=== PATIENT | male | born 1945 | race Caucasian/White ===

== ENCOUNTER 2017-12-31 09:08 | Day surgery (SDC) | payer OTHER, BC ==
[2017-12-25 09:29] VITALS: BMI 25.7
[2017-12-31] MEDS ORDERED: PROPOFOL 20 ML ONE ×2 (09:25)
[2017-12-31] MEDS ORDERED: LIDOCAINE HCL/PF 2% SDV 5ML VIAL ONE (09:25)
[2017-12-31 16:29] VITALS: TEMP 97.6
[2017-12-31 16:31] VITALS: BP 106/56; PULSE 91
--- NOTE | 2018-01-02 17:39 | PATH ---
Surgical Pathology Report Patient Name: JAY JAY MODI [facility]. Rec. #: [id number] /Age/Gender: 1945 (Age: 72) / M Account: [id number] Location: [facility] Taken: 12/31/2017 Received: 12/31/2017 Reported: 01/02/2018 Physicians: Paula Lowery M.D. Specimen(s) Received A: ASCENDING COLON B: TRANSVERSE THICKENED FOLD C: 15 CM D: RECTUM Clinical History Polyp, rectal mass Final Diagnosis A. ASCENDING, BIOPSY: COLONIC MUCOSA SHOWING MILD SURFACE HYPERPLASTIC CHANGE. B. TRANSVERSE THICKENED FOLD, BIOPSY: HYPERPLASTIC POLYP. C. 15 CM, BIOPSY: SESSILE SERRATED POLYP. D. RECTUM, BIOPSY: ADENOCARCINOMA, WELL DIFFERENTIATED. Comment: Microsatellite instability (MSI) studies are being performed on specimen D; the results will be reported separately in an addendum. Electronically Signed Ingris Del Castillo M.D. Gross Description A. received in formalin, labeled "ascending" is one piece of gregorio tissue measuring 0.3 cm in greatest dimension. Entirely submitted one cassette. B. received in formalin, labeled "transverse, thickened fold" is one piece of gregorio tissue measuring 0.3 cm in greatest dimension. Entirely submitted one cassette. C. received in formalin, labeled "15 cm" are two pieces of gregorio tissue measuring 0.1 cm and 0.2 cm in greatest dimension. Entirely submitted one cassette. D. received in formalin, labeled "rectum" and six pieces of gregorio tissue ranging from 0.1-0.4 cm in greatest dimension with an aggregate are 0.7 x 0.4 x 0.2 cm. Entirely submitted one cassette. ebram/12/31/2017
== END 2017-12-31 11:20 | disposition home or self-care (01) ==
LOC: FASU-ENDO 09:08
PROVIDERS: ATTEND Internal Medicine Gastroenterology
PROC: 0DBP8ZX Excision of Rectum, Via Natural or Artificial Opening Endoscopic, Diagnostic (ICD-10-PCS; principal; 2017-12-31 10:14)
PROC: 0DBN8ZX Excision of Sigmoid Colon, Via Natural or Artificial Opening Endoscopic, Diagnostic (ICD-10-PCS; 2017-12-31 10:14)
PROC: 3E0H8GC Introduction of Other Therapeutic Substance into Lower GI, Via Natural or Artificial Opening Endoscopic (ICD-10-PCS; 2017-12-31 10:14)
DX: C20 Malignant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 (principal); D12.5 Benign neoplasm of sigmoid colon; K63.5 Polyp of colon; K57.30 Diverticulosis of large intestine without perforation or abscess without bleeding; K63.89 Other specified diseases of intestine; K92.1 Melena
CPT/HCPCS: 88305-TC

== ENCOUNTER 2018-06-25 10:31 | Observation (INO) | payer OTHER, BC ==
--- NOTE | 2018-06-25 10:39 | PDOC ---
History of Present Illness - General Chief Complaint: Respiratory Stated Complaint: DIFFICULTY BREATHING Time Seen by Provider: 06/25/18 10:35 History Source: Patient Exam Limitations: No Limitations - History of Present Illness Initial Comments: 06/25/18 10:36 72y M hx of Myasthenia Gravis (stable), Asthma, colon ca (on chemo, last time approx 1 month ago), presents with 1 day of sob. Patient states he was in his usual state of health yesterday during the day, in the middle of the night, he felt out of breath. he endorses minimal non productive cough. Pt endorses a substernal chest tightness but denies any chest pain. Pt has been sob since so came for evaluation. Took his albuterol and prednisone without significant improvement no associated fever/chills, sore throat, chest pain, rashes, leg pain or swelling, hemoptysis. His MG has been stable recently as is his asthma. No changes to his meds (on 10m Prednisone for MG) no recent travel or sick contacts Past History - Past Medical History Allergies/Adverse Reactions: Allergies Allergy/AdvReac Type Severity Reaction Status Date / Time Penicillins Allergy Rash Verified 06/25/18 10:33 venom-honey bee Allergy Verified 06/25/18 10:33 [bee venom (honey bee)] Home Medications: Ambulatory Orders Quinapril HCl 20 mg PO BID 08/28/11 Atorvastatin Ca [Lipitor -] 40 mg PO DAILY 06/19/14 Pregabalin [Lyrica -] 150 mg PO BID 06/19/14 Prednisone 10 mg PO Q48H 12/25/17 Anemia: No Asthma: Yes (no meds x1 yr) Cancer: No Cardiac Disorders: No CVA: No COPD: No CHF: No Dementia: No Diabetes: No GI Disorders: No Disorders: No HTN: Yes Hypercholesterolemia: Yes Liver Disease: No Seizures: Yes (Alcohol related seizures ) Thyroid Disease: No - Surgical History Abdominal Surgery: No Appendectomy: No Cardiac Surgery: No Cholecystectomy: No Lung Surgery: No Neurologic Surgery: No Orthopedic Surgery: No - Suicide/Smoking/Psychosocial Hx Smoking Status: No Smoking History: Former smoker Have you smoked in the past 12 months: No Number of Cigarettes Smoked Daily: 0 If you are a former smoker, when did you quit?: 1980 Hx Alcohol Use: No (stopped 1980) Drug/Substance Use Hx: No Substance Use Type: Alcohol Hx Substance Use Treatment: No Review of Systems - Review of Systems Able to Perform ROS?: Yes Comments:: 06/25/18 11:02 Constitutional - no reported Fever, Chills, HEENT: no reported vision changes, sore throat Respiratory: +cough, sob, no reported hemoptysis Cardiac: +chest tightness no reported chest pain, palpitations, light headedness , leg swelling Abd/GI: no reported abd pain, nausea, vomiting, blood per rectum, melena, diarrhea : no reported dysuria, frequency, discharge Musculskelatal - no reported back pain, joint swelling skin - no reported bruising, erythema, rash neurological: no reported headache, numbness, focal weakness, tingling, ataxia, hematologic: no reported easy bruising, easy bleeding *Physical Exam - Physical Exam Comments: 06/25/18 11:03 GENERAL: The patient is awake, alert, and fully oriented, HEAD: Normocephalic, atraumatic. EYES: extraocular movements intact, sclera anicteric, conjunctiva clear. ENT: Normal voice, Moist mucous membranes. NECK: Normal range of motion, supple LUNGS: scatterd wheezing, tachypneic HEART: tachcyardic, normal S1 and S2 without murmur, rub or gallop. ABDOMEN: Soft, nontender, normoactive bowel sounds. No guarding, no rebound. . No CVA tenderness EXTREMITIES: Normal range of motion, trace edema. no calf tenderness NEUROLOGICAL: No facial assymetry, Normal speech, PSYCH: Normal mood, normal affect. SKIN: Warm, Dry, normal turgor, Heart Score/ECG Review - ECG Impressions Comment:: 06/25/18 11:03 Twelve-lead EKG was performed and reviewed by me. There is normal sinus rhythm with a rate of 124 The axis is normal. The intervals are normal. There is normal R wave progression There are no ST or T wave abnormalities. Impression: sinus tachycardia ED Treatment Course - LABORATORY CBC & Chemistry Diagram: 06/25/18 11:10 06/25/18 11:10 Medical Decision Making - Medical Decision Making 06/25/18 11:04 ddx - pna, pe, asthma, acs will ck labs pt placed on cardiac moonitor cxr to r/o acute pulm disease will send trop/bnp will give neg will reassess 06/25/18 11:54 labs cxr reviewed no acute pulm disease on cxr [facility] 06/25/18 12:44 cta negative for pe will admit for further management 06/25/18 14:18 possible COPD will give solumdrol case dw dr. bonilla, agree with keeping put for further management will admit to hosptialist service 06/25/18 15:01 pt again complaining of sob breath sounds tight and scattered wheez will alexei giron rneb, and mag *DC/Admit/Observation/Transfer Diagnosis at time of Disposition: Shortness of breath, Thrombocytopathia - Discharge Dispostion Condition at time of disposition: Stable Decision to Admit order: Yes - Referrals - Patient Instructions - Post Discharge Activity
[2018-06-25] MEDS ORDERED: ALBUTEROL SO4 2.5/IPRATROPIUM 0.5 INH SOL 3 ML VIAL.NEB. NEB ONE ×4 (10:44→15:03)
[2018-06-25 10:47] VITALS: BMI 26.4
[2018-06-25 11:25] LABS: MCH 37.8 pg (25.7-33.7); MCHC 33.3 g/dl (32.0-35.9); MEAN CELL VOLUME 113.5 fl (80-96); RBC 3.43 M/mm3 (4.00-5.60); RDW 20.7 % (11.9-15.9); WHITE BLOOD COUNT 6.1 K/mm3 (4.0-10.8)
[2018-06-25 11:33] LABS: ALBUMIN 3.5 g/dl (3.4-5.0); ALK PHOS 177 U/L (45-117); ANION GAP 6 MMOL/L (8-16); BILIRUBIN,TOTAL 1.7 mg/dl (0.2-1); BLOOD UREA NITROGEN 11 mg/dl (7-18); CALCIUM 8.5 mg/dl (8.5-10); CHLORIDE 109 mmol/L (98-107); CO2 21 mmol/L (21-32); CREATININE 0.6 mg/dl (0.55-1.3); GLUCOSE,RANDOM 147 mg/dl (74-106); POTASSIUM 3.8 mmol/L (3.5-5.1); SGOT/AST 41 U/L (15-37); SGPT/ALT 29 U/L (13-61); SODIUM 136 mmol/L (136-145); TOT PROT 6.3 g/dl (6.4-8.2)
[2018-06-25 11:34] LABS: INR 1.24 (0.82-1.09); PROTHROMBIN TIME (PATIENT) 13.8 SEC (10.2-13.0)
[2018-06-25 12:09] LABS: PLATELET COUNT 33 K/MM3 (134-434)
[2018-06-25 12:11] LABS: ANISOCYTOSIS SLIGHT
[2018-06-25 12:12] LABS: PLATELET ESTIMATE DECREASED
[2018-06-25] MEDS ORDERED: SODIUM CHLORIDE 500 ML IV STA ×2 (13:21→16:30)
[2018-06-25] MEDS ORDERED: methylPREDNISolone NA SUCC 125 MG/2 ML VIAL IVPUSH ONE (14:18)
[2018-06-25] MEDS ORDERED: methylPREDNISolone NA SUCC 125 MG/2 ML VIAL ONE (14:22)
[2018-06-25] MEDS ORDERED: MAGNESIUM SULF 50% (8.12 MEQ/2 ML-1 GM VIAL) IVPB ONE (15:01)
[2018-06-25] MEDS ORDERED: MAGNESIUM 1GM/D5W - 2 GM/200 ML IVPB IVPB ONE (15:04)
--- NOTE | 2018-06-25 16:08 | HP ---
CHIEF COMPLAINT: Shortness of breath PCP: Yannick Velásquez-->Aric Velez-->Emiliano; none at present Oncologist: Dr. Arauz, [place] [phone] Radiation Oncologist: Dr. Colindres HISTORY OF PRESENT ILLNESS: 72 year-old male with a PMH significant for HTN, HLD, asthma, myasthenia gravis , and rectal adenocarcinoma last cycle chemo x 4 weeks ago and about to start radiation. Patient presented to the ED today complaining of shortness of breath. Patient has a history of asthma but has been off theophylline for years , occasionally uses albuterol rescue inhaler. He also has a history of seasonal allergies. Yesterday patient was outside for most of the day and the pollen was very heavy. He went to bed and around midnight awoke feeling short of breath. He used his albuterol inhaler. Woke up again about an hour later SOB, again used inhaler. This morning patient had a sore throat and clear nasal discharge. He went to the pharmacy to get some OTC remedies and the pharmacist suggested he go to ED because he was visibly short of breath. He has a cough productive of light yellow sputum. Denies chest pain, chest tightness, decreased exercise tolerance, lower extremity edema. He denies fever, sweats, chills. Denies nausea , vomiting, diarrhea. Denies abdominal pain. 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[employer], leather worker (occupational exposures) Allergies Penicillins Allergy (Verified 06/25/18 10:33) Rash venom-honey bee [bee venom (honey bee)] Allergy (Verified 06/25/18 10:33) HOME MEDICATIONS: Home Medications Medication Instructions Recorded Quinapril HCl 20 mg PO BID 08/28/11 Atorvastatin Ca [Lipitor -] 40 mg PO DAILY 06/19/14 Pregabalin [Lyrica -] 150 mg PO BID 06/19/14 Prednisone 10 mg PO Q48H 10/25/18 REVIEW OF SYSTEMS CONSTITUTIONAL: Absent: fever, chills, diaphoresis, generalized weakness, malaise, loss of appetite, weight change HEENT: Absent: rhinorrhea, nasal congestion, throat pain, throat swelling, difficulty swallowing, mouth swelling, ear pain, eye pain, visual changes CARDIOVASCULAR: Absent: chest pain, syncope, palpitations, irregular heart rate, lightheadedness , peripheral edema RESPIRATORY: +shortness of breath, wheezing, sore throat, clear nasal discharge, cough productive light yellow sputum Absent: dyspnea with exertion, orthopnea, stridor, hemoptysis GASTROINTESTINAL: Absent: abdominal pain, abdominal distension, nausea, vomiting, diarrhea, constipation, melena, hematochezia GENITOURINARY: Absent: dysuria, frequency, urgency, hesitancy, hematuria, flank pain, genital pain MUSCULOSKELETAL: Absent: myalgia, arthralgia, joint swelling, back pain, neck pain SKIN: Absent: rash, itching, pallor HEMATOLOGIC/IMMUNOLOGIC: Absent: easy bleeding, easy bruising, lymphadenopathy, frequent infections ENDOCRINE: Absent: unexplained weight gain, unexplained weight loss, heat intolerance, cold intolerance NEUROLOGIC: Absent: headache, focal weakness or paresthesias, dizziness, unsteady gait, seizure, mental status changes, bladder or bowel incontinence PSYCHIATRIC: Absent: anxiety, depression, suicidal or homicidal ideation, hallucinations. PHYSICAL EXAMINATION Vital Signs - 24 hr 06/25/18 06/25/18 06/25/18 10:33 11:11 12:06 Temperature 99.1 F Pulse Rate 132 H Pulse Rate [ 132 H 110 H Apical] Respiratory 20 22 H 20 Rate Blood Pressure 182/92 H Blood Pressure 128/71 117/69 [Right Arm] O2 Sat by Pulse 93 L 96 96 Oximetry (%) 06/25/18 15:13 Temperature Pulse Rate Pulse Rate [ 112 H Apical] Respiratory 20 Rate Blood Pressure Blood Pressure 130/73 [Right Arm] O2 Sat by Pulse 98 Oximetry (%) GENERAL: Awake, alert, and fully oriented, in no acute distress. HEAD: Normal with no signs of trauma. EYES: Pupils equal, round and reactive to light, extraocular movements intact, sclera anicteric, conjunctiva clear. No lid lag. EARS, NOSE, THROAT: Ears normal, nares patent, pharynx red, injected appearance , no exudates; dry mucous membranes LUNGS: Breath sounds CTA, no wheezing appreciated HEART: Regular rate and rhythm, normal S1 and S2 ABDOMEN: Soft, nontender, not distended UPPER EXTREMITIES: 2+ pulses, warm, well-perfused. No cyanosis. No clubbing. No peripheral edema. LOWER EXTREMITIES: 2+ pulses, warm, well-perfused. No calf tenderness. No peripheral edema. NEUROLOGICAL: Cranial nerves II-XII intact. Normal speech. Steady gait Laboratory Results - last 24 hr 06/25/18 06/25/18 06/25/18 11:10 11:10 11:10 WBC 6.1 RBC 3.43 L Hgb 13.0 Hct 39.0 D MCV 113.5 H D MCH 37.8 H D MCHC 33.3 RDW 20.7 H D Plt Count 33 L* D MPV 8.0 Absolute Neuts (auto) 4.5 Neutrophils % No Result Required. Neutrophils % (Manual) 81.0 Lymphocytes % No Result Required. Lymphocytes % (Manual) 10.0 Monocytes % (Manual) 5 Eosinophils % (Manual) 4.0 Platelet Estimate Decreased Polychromasia 1+ Poikilocytosis Slight Anisocytosis Slight PT with INR INR Sodium 136 Potassium 3.8 Chloride 109 H Carbon Dioxide 21 Anion Gap 6 L BUN 11 Creatinine 0.6 Creat Clearance w eGFR 133.20 Random Glucose 147 H Calcium 8.5 Total Bilirubin 1.7 H AST 41 H ALT 29 Alkaline Phosphatase 177 H Creatine Kinase 52 Troponin I < 0.03 B-Natriuretic Peptide Total Protein 6.3 L Albumin 3.5 06/25/18 06/25/18 11:10 11:10 WBC RBC Hgb Hct MCV MCH MCHC RDW Plt Count MPV Absolute Neuts (auto) Neutrophils % Neutrophils % (Manual) Lymphocytes % Lymphocytes % (Manual) Monocytes % (Manual) Eosinophils % (Manual) Platelet Estimate Polychromasia Poikilocytosis Anisocytosis PT with INR 13.8 H INR 1.24 H Sodium Potassium Chloride Carbon Dioxide Anion Gap BUN Creatinine Creat Clearance w eGFR Random Glucose Calcium Total Bilirubin AST ALT Alkaline Phosphatase Creatine Kinase Troponin I B-Natriuretic Peptide 33.0 Total Protein Albumin ASSESSMENT/PLAN 72 year-old male with a PMH significant for HTN, HLD, asthma, myasthenia gravis , and rectal adenocarcinoma last cycle chemo x 4 weeks ago and about to start radiation. Placed on observation for asthma exacerbation and tachycardia. Asthma exacerbation Chronic lung disease --CTA negative for PE --saw Dr. Mehta December 2017 for PFT testing; uses albuterol inhaler rarely; on no regular medication/inhalers --satting 96% on room air at rest, 93% on room air with flat surface ambulation (testing done by me) --solumedrol 125mg x 1 in ED, short course steroids --duonebs q6h scheduled --afebrile, no leukocytosis, no abx for now --pulmonary consult pending Elevated bilirubin Mild transaminitis --repeated LFTs with increased bili 1.7-->2.0 --US abdomen ordered --trend values Rectal cancer Thrombocytopenia --last chemo cycle finished 4 weeks ago; supposed to start radiation shortly --spoke to oncologist Dr. Arauz, platelets 33k is lower than expected but no intervention indicated at this point --monitor closely for s/s of bleeding Hypertensive urgency --BP 182/92 on admission, has stabilized --continue quinapril Tachycardia --no cardiac history --telemetry monitoring --orthostatics --IV fluids Hyperlipidemia --continue Lipitor Myasthenia Gravis --diagnosed 10 years ago, followed by Dr. Bell --stable, on no meds FEN Fluids: NS x 500cc bolus; then 75mL/hr Electrolytes: replete as indicated Nutrition: low sodium diet DVT prophylaxis: subq lovenox Dispo: continues to require observation. Full code. Visit type - Emergency Visit Emergency Visit: Yes Care time: The patient presented to the Emergency Department on the above date and was hospitalized for further evaluation of their emergent condition. - New Patient This patient is new to me today: Yes Date on this admission: 06/25/18 - Critical Care Critical Care patient: No
[2018-06-25] MEDS ORDERED: ATORVASTATIN CA 40 MG TABLET (FP) PO SCH (16:15)
[2018-06-25] MEDS ORDERED: SODIUM CHLORIDE 1,000 ML IV SCH (16:45)
[2018-06-25] MEDS ORDERED: levoFLOXacin 750 MG TABLET PO SCH (17:00)
[2018-06-25] MEDS: ALBUTEROL SO4 2.5/IPRATROPIUM 0.5 INH SOL 3 ML VIAL.NEB. NEB SCH ×2 (17:30→22:42)
[2018-06-25 17:50] LABS: ALBUMIN 3.5 g/dl (3.4-5.0); BILIRUBIN,DIRECT 0.5 mg/dL (0.0-0.2); TOT PROT 6.4 g/dl (6.4-8.2)
[2018-06-25] MEDS: PREGABALIN 50 MG CAPSULE PO SCH (21:36)
[2018-06-25] MEDS: QUINAPRIL HCL 20 MG TABLET (FP) PO SCH (21:36)
[2018-06-26 06:05] VITALS: BP 132/75; PULSE 88; TEMP 97.7
[2018-06-26 07:29] LABS: HEMATOCRIT 36.8 % (35.4-49); HEMOGLOBIN 12.5 GM/dl (11.7-16.9); LYMPH % 6.7 % (8-40); MCH 37.8 pg (25.7-33.7); MCHC 33.8 g/dl (32.0-35.9); MEAN CELL VOLUME 111.9 fl (80-96); MEAN PLT VOLUME 7.5 fl (7.5-11.1); MONO % 5.2 % (3.8-10.2); NEUT % 88.1 % (42.8-82.8); PLATELET COUNT 41 K/MM3 (134-434); RBC 3.29 M/mm3 (4.00-5.60); RDW 20.5 % (11.9-15.9)
[2018-06-26 07:43] LABS: ANION GAP 9 MMOL/L (8-16); BLOOD UREA NITROGEN 11 mg/dl (7-18); CALCIUM 8.5 mg/dl (8.5-10); CHLORIDE 107 mmol/L (98-107); CO2 20 mmol/L (21-32); CREATININE 0.5 mg/dl (0.55-1.3); GLUCOSE,RANDOM 167 mg/dl (74-106); MAGNESIUM 2.1 mg/dL (1.8-2.4); POTASSIUM 4.2 mmol/L (3.5-5.1); SODIUM 136 mmol/L (136-145)
[2018-06-26] MEDS: QUINAPRIL HCL 20 MG TABLET (FP) PO SCH (09:40)
[2018-06-26] MEDS: PREGABALIN 50 MG CAPSULE PO SCH (09:41)
[2018-06-26] MEDS: ALBUTEROL SO4 2.5/IPRATROPIUM 0.5 INH SOL 3 ML VIAL.NEB. NEB SCH (09:41)
--- NOTE | 2018-06-26 09:42 | PN ---
Progress Note (short form) - Note Progress Note: PULMONARY CONSULTATION DICTATED 06/26/18 IMP ASTHMA EXACERBATION URI MYASTHENIA GRAVIS COLON CA HTN THROMBOCYTOPENIA PLAN PREDNISONE SYMBICORT 160/4.5 2 INHALATIONS BID ' ALBUTEROL NEDS,INHALER ABX MONITOR PEAK FLOW ' DR CRAIG Problem List - Problems (1) Asthma attack Code(s): J45.901 - UNSPECIFIED ASTHMA WITH (ACUTE) EXACERBATION (2) Shortness of breath Code(s): R06.02 - SHORTNESS OF BREATH (3) Thrombocytopathia Code(s): D69.1 - QUALITATIVE PLATELET DEFECTS (4) Myasthenia Code(s): G70.00 - MYASTHENIA GRAVIS WITHOUT (ACUTE) EXACERBATION (5) Colon cancer Code(s): C18.9 - MALIGNANT NEOPLASM OF COLON, UNSPECIFIED
[2018-06-26] MEDS ORDERED: BUDESONIDE/FORMETEROL FUMARATE 160/4.5 mcg INHALER IH SCH (10:00)
[2018-06-26] MEDS ORDERED: AZITHROMYCIN 250 MG TABLET PO SCH (10:00)
[2018-06-26] MEDS ORDERED: predniSONE 20 MG TABLET (UD) PO SCH (10:00)
[2018-06-26] MEDS ORDERED: ENOXAPARIN NA (PORCINE) 40 MG/0.4 ML DISP.SYRIN SQ SCH (10:00)
--- NOTE | 2018-06-26 10:17 | CONS ---
DATE OF CONSULTATION: 06/26/2018 REFERRING PHYSICIAN: HUMBLE Cobian HISTORY: The patient is a 72-year-old white male known to me from previous office visit, with past medical history of asthma, maintained on Albuterol inhaler; myasthenia gravis, maintained on prednisone; colon cancer currently on chemo as well as RT, last chemo approximately 1 month ago; remote history of smoking, admitted to [facility] on June 25 with complaint of 1-day history of increasing shortness of breath, cough productive of clear, occasionally yellow sputum. Patient denied any complaints of chest pain, nausea, vomiting, or diaphoresis. He states he was doing well till the day of admission, until the middle of the night when he started feeling short of breath. He denies any fevers, chills, nausea, hemoptysis. He also has complaints of chest tightness but no chest pain. In the emergency room he was noted to have bronchospasm and moderately dyspneic. He was given some IV Medrol, inhaled bronchodilators with good clinical response and transferred up to medical floor for further management. He denies any recent travel. There is no history of DVT or PE in the past. use of an albuterol inhaler which he used on an infrequent basis. Denies any history of occupational exposure to chemicals or fumes. PAST MEDICAL HISTORY: Again includes myasthenia gravis, colon cancer, asthma, hypertension, and anemia SOCIAL HISTORY: History of smoking, quit in 1980. No occupational exposures. No EtOH. REVIEW OF SYSTEMS: Positive mild dyspnea, positive mild cough. No chest pain, no palpitation, no fever, no weight loss, no night sweats, no hemoptysis. CURRENT MEDICATIONS: Include prednisone 60 mg daily, Accupril 20 mg b.i.d., Lovenox, Lyrica, DuoNeb, normal saline, and Lipitor. PHYSICAL EXAMINATION: General: The patient is a well-developed, well-nourished male, awake, alert, in no acute distress. Vital Signs: He is afebrile. Blood pressure 132/75. Respiratory rate is 18. O2 saturation is 95% on room air. HEENT: Exam is normocephalic, atraumatic. Neck: Supple. Heart: Regular, S1, S2. Chest: Few rhonchi on the left. Abdomen: Soft. Bowel sounds are positive. Extremities: No cyanosis or edema. LABORATORY: WBC 6.0, hemoglobin 12.5, hematocrit 36.8, with a platelet count of 41,000. INR is 1.24. BUN 11, creatinine 0.5. Chest CT: No infiltrates and no effusions. chronic lung disease. No change from previous exam from 2011. IMPRESSION: 1. Asthma exacerbation likely secondary to upper respiratory infection. clinically improving. 2. Myasthenia gravis. 3. History of colon cancer, currently on chemotherapy as well as radiation therapy. PLAN: Continue prednisone 60 mg with taper, Symbicort 160/4.5, 2 puffs b.i.d.; Albuterol inhaler 2 puffs q.4 to 6 hours p.r.n.; as well as Zithromax. Continue to monitor peak flow. JAY JAY CRAIG M.D. [id number]
[2018-06-26 10:46] LABS: ALBUMIN 3.2 g/dl (3.4-5.0); BILIRUBIN,DIRECT 0.3 mg/dL (0.0-0.2); BILIRUBIN,TOTAL 1.5 mg/dl (0.2-1); TOT PROT 5.8 g/dl (6.4-8.2)
--- NOTE | 2018-06-26 11:29 | DS ---
Physical Exam: SUBJECTIVE: Patient seen and examined OBJECTIVE: Vital Signs Period Temp Pulse Resp BP Sys/Ayon Pulse Ox Last 24 Hr 97.7 F-99.2 F 88-112 16-20 117-140/69-75 93-98 PHYSICAL EXAM GENERAL: The patient is awake, alert, and fully oriented, in no acute distress. HEAD: Normal with no signs of trauma. EYES: PERRL, extraocular movements intact, sclera anicteric, conjunctiva clear. ENT: Ears normal, nares patent, oropharynx clear without exudates, moist mucous membranes. NECK: Trachea midline, full range of motion, supple. LUNGS: Breath sounds equal, clear to auscultation bilaterally, no wheezes, no crackles, no accessory muscle use. HEART: Regular rate and rhythm, S1, S2 without murmur, rub or gallop. ABDOMEN: Soft, nontender, nondistended, normoactive bowel sounds, no guarding, no rebound, no hepatosplenomegaly, no masses. EXTREMITIES: 2+ pulses, warm, well-perfused, no edema. NEUROLOGICAL: Cranial nerves II through XII grossly intact. Normal speech, gait not observed. PSYCH: Normal mood, normal affect. SKIN: Warm, dry, normal turgor, no rashes or lesions noted. LABS Laboratory Results - last 24 hr 06/25/18 06/25/18 06/25/18 11:10 11:10 11:10 WBC 6.1 RBC 3.43 L Hgb 13.0 Hct 39.0 D MCV 113.5 H D MCH 37.8 H D MCHC 33.3 RDW 20.7 H D Plt Count 33 L* D MPV 8.0 Absolute Neuts (auto) 4.5 Neutrophils % No Result Required. Neutrophils % (Manual) 81.0 Lymphocytes % No Result Required. Lymphocytes % (Manual) 10.0 Monocytes % Monocytes % (Manual) 5 Eosinophils % Eosinophils % (Manual) 4.0 Basophils % Platelet Estimate Decreased Polychromasia 1+ Poikilocytosis Slight Anisocytosis Slight PT with INR INR Sodium 136 Potassium 3.8 Chloride 109 H Carbon Dioxide 21 Anion Gap 6 L BUN 11 Creatinine 0.6 Creat Clearance w eGFR 133.20 Random Glucose 147 H Calcium 8.5 Magnesium Total Bilirubin 1.7 H Direct Bilirubin AST 41 H ALT 29 Alkaline Phosphatase 177 H Creatine Kinase 52 Troponin I < 0.03 B-Natriuretic Peptide Total Protein 6.3 L Albumin 3.5 TSH 06/25/18 06/25/18 06/25/18 11:10 11:10 17:00 WBC RBC Hgb Hct MCV MCH MCHC RDW Plt Count MPV Absolute Neuts (auto) Neutrophils % Neutrophils % (Manual) Lymphocytes % Lymphocytes % (Manual) Monocytes % Monocytes % (Manual) Eosinophils % Eosinophils % (Manual) Basophils % Platelet Estimate Polychromasia Poikilocytosis Anisocytosis PT with INR 13.8 H INR 1.24 H Sodium Potassium Chloride Carbon Dioxide Anion Gap BUN Creatinine Creat Clearance w eGFR Random Glucose Calcium Magnesium Total Bilirubin 2.0 H Direct Bilirubin 0.5 H AST 46 H ALT 30 Alkaline Phosphatase 172 H Creatine Kinase Troponin I B-Natriuretic Peptide 33.0 Total Protein 6.4 Albumin 3.5 TSH 0.86 06/25/18 06/25/18 06/26/18 17:00 22:35 06:45 WBC 6.0 RBC 3.29 L Hgb 12.5 Hct 36.8 MCV 111.9 H MCH 37.8 H MCHC 33.8 RDW 20.5 H Plt Count 41 L D MPV 7.5 Absolute Neuts (auto) 5.3 Neutrophils % 88.1 H Neutrophils % (Manual) Lymphocytes % 6.7 L D Lymphocytes % (Manual) Monocytes % 5.2 Monocytes % (Manual) Eosinophils % 0.0 D Eosinophils % (Manual) Basophils % 0.0 Platelet Estimate Polychromasia Poikilocytosis Anisocytosis PT with INR INR Sodium Potassium Chloride Carbon Dioxide Anion Gap BUN Creatinine Creat Clearance w eGFR Random Glucose Calcium Magnesium Total Bilirubin Direct Bilirubin AST ALT Alkaline Phosphatase Creatine Kinase Troponin I < 0.03 < 0.03 B-Natriuretic Peptide Total Protein Albumin TSH 06/26/18 06/26/18 06:45 06:45 WBC RBC Hgb Hct MCV MCH MCHC RDW Plt Count MPV Absolute Neuts (auto) Neutrophils % Neutrophils % (Manual) Lymphocytes % Lymphocytes % (Manual) Monocytes % Monocytes % (Manual) Eosinophils % Eosinophils % (Manual) Basophils % Platelet Estimate Polychromasia Poikilocytosis Anisocytosis PT with INR INR Sodium 136 Potassium 4.2 Chloride 107 Carbon Dioxide 20 L Anion Gap 9 BUN 11 Creatinine 0.5 L Creat Clearance w eGFR 164.39 Random Glucose 167 H Calcium 8.5 Magnesium 2.1 Total Bilirubin 1.5 H Direct Bilirubin 0.3 H AST 35 ALT 26 Alkaline Phosphatase 146 H D Creatine Kinase Troponin I B-Natriuretic Peptide Total Protein 5.8 L Albumin 3.2 L TSH HOSPITAL COURSE: Date of Admission:06/25/18 Date of Discharge: 06/26/18 Minutes to complete discharge: 35 Discharge Summary Reason For Visit: SHORTNESS OF BREATH Current Active Problems Asthma attack (Acute) Colon cancer (Acute) Myasthenia (Acute) Shortness of breath (Acute) Thrombocytopathia (Acute) Condition: Improved - Instructions Diet, Activity, Other Instructions: Four prescriptions have been sent to your pharmacy: 1. Albuterol inhaler 2. Symbicort inhaler 3. Azithromycin (antibiotic) 4. Prednisone 60mg - take one tablet daily for three days; then resume your regular prednisone dosing every 48 hours It is recommended you follow up with Dr. Mehta. Dr. Arauz is aware of your hospital stay. He asks that you call his office to reschedule your missed appointment. Return to the emergency department for any new or worsening symptoms. Referrals: Wilfrid Mehta MD [Staff Physician] - Disposition: HOME - Home Medications Comprehensive Discharge Medication List: Ambulatory Orders Quinapril HCl 20 mg PO BID 08/28/11 Atorvastatin Ca [Lipitor] 40 mg PO DAILY 06/19/14 Pregabalin [Lyrica -] 150 mg PO BID 06/19/14 Prednisone 10 mg PO Q48H 12/25/17 Azelas/Fluticasone/Sod Chlorid [Ticalast Nasal Jenkins Kit] 2 spray NS BID Albuterol Sulfate [Proair Hfa] 8.5 gm IH PRN #1 hfa.aer.[id number] 06/26/18 Azithromycin [Zithromax 250mg Tablets -] 500 mg PO DAILY 5 Days #5 tablet Budesonide/Formeterol Fumarate [SYMBICORT 160/4.5mcg -] 2 puff IH BID #1 inhaler 06/26/18 Prednisone [Deltasone] 60 mg PO DAILY #9 tablet 06/26/18 This patient is new to me today: No Emergency Visit: Yes ED Registration Date: 06/25/18 Care time: The patient presented to the Emergency Department on the above date and was hospitalized for further evaluation of their emergent condition. Critical Care patient: No - Discharge Referral Referred to [facility] Med [facility] No
--- NOTE | 2018-06-26 11:30 | EKG ---
Test Reason : Blood Pressure : / mmHG Vent. Rate : 124 BPM Atrial Rate : 124 BPM P-R Int : 148 ms QRS Dur : 086 ms QT Int : 298 ms P-R-T Axes : 078 080 054 degrees QTc Int : 428 ms SINUS TACHYCARDIA WITH PREMATURE ATRIAL COMPLEXES NO PREVIOUS ECGS AVAILABLE Confirmed by YESSENIA OLGUIN MD ([id number]) on 06/26/2018 11:29:28 AM Referred By: LUCERO BOYD Confirmed By:YESSENIA OLGUIN MD
[2018-06-26] MEDS ORDERED: ATORVASTATIN CA 40 MG TABLET (FP) PO SCH (22:00)
--- NOTE | 2018-06-27 15:17 | EKG ---
Test Reason : Blood Pressure : / mmHG Vent. Rate : 091 BPM Atrial Rate : 091 BPM P-R Int : 170 ms QRS Dur : 090 ms QT Int : 384 ms P-R-T Axes : 047 035 033 degrees QTc Int : 472 ms NORMAL SINUS RHYTHM NORMAL ECG WHEN COMPARED WITH ECG OF 25-JUN-2018 10:56, PREMATURE ATRIAL COMPLEXES ARE NO LONGER PRESENT Confirmed by ROSARIO GR MD ([id number]) on 06/27/2018 3:17:29 PM Referred By: DR SMITH Confirmed By:ROSARIO GR MD
== END 2018-06-26 11:23 | disposition home or self-care (01) ==
LOC: FER 10:31 → UNDOADMOB 15:13 → INTOOBSV 15:13 → FM/S 15:13
PROVIDERS: ATTEND Nurse Practitioner Acute Care
PROC: 3E0333Z Introduction of Anti-inflammatory into Peripheral Vein, Percutaneous Approach (ICD-10-PCS; principal; 2018-06-25)
PROC: 3E0337Z Introduction of Electrolytic and Water Balance Substance into Peripheral Vein, Percutaneous Approach (ICD-10-PCS; 2018-06-25)
PROC: 3E033GC Introduction of Other Therapeutic Substance into Peripheral Vein, Percutaneous Approach (ICD-10-PCS; 2018-06-25)
PROC: 3E013GC Introduction of Other Therapeutic Substance into Subcutaneous Tissue, Percutaneous Approach (ICD-10-PCS; 2018-06-25)
PROC: 3E0F7GC Introduction of Other Therapeutic Substance into Respiratory Tract, Via Natural or Artificial Opening (ICD-10-PCS; 2018-06-25)
DX: J45.901 Unspecified asthma with (acute) exacerbation (principal); J06.9 Acute upper respiratory infection, unspecified; R06.02 Shortness of breath; D69.6 Thrombocytopenia, unspecified; C19 Malignant neoplasm of rectosigmoid junction; I16.0 Hypertensive urgency; R00.0 Tachycardia, unspecified; E78.5 Hyperlipidemia, unspecified; I10 Essential (primary) hypertension; E80.7 Disorder of bilirubin metabolism, unspecified; G70.00 Myasthenia gravis without (acute) exacerbation; Z87.891 Personal history of nicotine dependence; Z86.69 Personal history of other diseases of the nervous system and sense organs; Z92.21 Personal history of antineoplastic chemotherapy; Z88.0 Allergy status to penicillin; Z91.038 Other insect allergy status
CPT/HCPCS: 36415; 70360-TC-FY; 71045-TC-FY; 71275-TC; 80048; 80053; 80076; 82550; 83735; 83880; 84443; 84484; 85025; 85610; 93005; 94640; 96361; 96374; 96375; 99284-25; G0378; J7030

== ENCOUNTER 2018-10-14 12:49 | Day surgery (SDC) | payer OTHER, BC ==
[2018-10-09 12:20] VITALS: BMI 26.9
[2018-10-14] MEDS ORDERED: PROPOFOL 20 ML ONE ×2 (15:52)
[2018-10-14] MEDS ORDERED: LIDOCAINE HCL/PF 2% SDV 5ML VIAL ONE (15:52)
[2018-10-14 16:25] VITALS: TEMP 97.6
[2018-10-14 17:00] VITALS: BP 122/74; PULSE 72
--- NOTE | 2018-10-16 11:50 | PATH ---
Surgical Pathology Report Patient Name: JAY JAY MODI [facility]. Rec. #: [id number] /Age/Gender: 1945 (Age: 73) / M Account: [id number] Location: [facility] Taken: 10/14/2018 Received: 10/14/2018 Reported: 10/16/2018 Physicians: Paula Lowery M.D. Specimen(s) Received A: THICKENED FOLD JUNCTION CECUM AND ASCENDING COLON B: POLYP TRANSVERSE COLON C: RANDOM RECTUM TATOO SITE Clinical History History of rectal cancer Postoperative diagnosis: Polyp, thickened fold, diverticulosis Final Diagnosis A. THICKENED FOLD JUNCTION CECUM AND ASCENDING COLON, BIOPSY: HYPERPLASTIC POLYP. B. TRANSVERSE COLON POLYP, POLYPECTOMY: HYPERPLASTIC POLYP. C. RANDOM RECTUM TATTOO SITE, BIOPSY: BENIGN COLONIC MUCOSA WITH FOCAL SURFACE HYPERPLASTIC CHANGE. NEGATIVE FOR CARCINOMA. Electronically Signed Shawn Ríos M.D. Gross Description A. Received in formalin, labeled "biopsy thickened fold cecum/ascending colon" is a gregorio, irregular portion of soft tissue measuring 0.4 cm. in greatest dimension. The specimen is submitted in toto in one cassette. B. Received in formalin, labeled "biopsy polyp transverse colon" are 2 gregorio, irregular portions of soft tissue averaging 0.2 cm. in greatest dimension. The specimens are submitted in toto in one cassette. C. Received in formalin labeled "biopsy random rectum," is a 0.9 x 0.7 x 0.2 cm aggregate of gregorio soft tissue fragments. The formalin is filtered and the specimen is entirely submitted in one cassette. 10/15/2018 [facility]10/15/2018
== END 2018-10-14 17:18 | disposition home or self-care (01) ==
LOC: FASU-ENDO 12:49
PROVIDERS: ATTEND Internal Medicine Gastroenterology
PROC: 0DBL8ZX Excision of Transverse Colon, Via Natural or Artificial Opening Endoscopic, Diagnostic (ICD-10-PCS; 2018-10-14)
PROC: 0DBP8ZX Excision of Rectum, Via Natural or Artificial Opening Endoscopic, Diagnostic (ICD-10-PCS; 2018-10-14)
PROC: 0DBK8ZX Excision of Ascending Colon, Via Natural or Artificial Opening Endoscopic, Diagnostic (ICD-10-PCS; principal; 2018-10-14 16:01)
DX: Z85.048 Personal history of other malignant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, rectosigmoid junction, and anus (principal); K63.5 Polyp of colon; K64.8 Other hemorrhoids; K57.30 Diverticulosis of large intestine without perforation or abscess without bleeding
CPT/HCPCS: 88305-TC

== ENCOUNTER 2019-04-07 09:36 | Day surgery (SDC) | payer OTHER, BC ==
[2019-04-01 12:45] VITALS: BMI 27.3
[2019-04-07] MEDS ORDERED: PROPOFOL 20 ML ONE ×2 (09:39)
[2019-04-07] MEDS ORDERED: LIDOCAINE HCL/PF 2% SDV 5ML VIAL ONE (09:39)
[2019-04-07 13:47] VITALS: BP 128/71; PULSE 80; TEMP 98
--- NOTE | 2019-04-08 16:06 | PATH ---
Surgical Pathology Report Patient Name: JAY JAY MODI [facility]. Rec. #: [id number] /Age/Gender: 1945 (Age: 73) / M Account: [id number] Location: [facility] Taken: 04/07/2019 Received: 04/07/2019 Reported: 04/08/2019 Physicians: Paula Lowery M.D. Specimen(s) Received A: POLYP RECTUM B: RANDOM RECTUM Clinical History History of colon cancer Postoperative diagnosis: Diverticulosis, colon polyp Final Diagnosis A. RECTUM, POLYP, BIOPSY: HYPERPLASTIC POLYP. B. RANDOM RECTUM, BIOPSY: HYPERPLASTIC POLYP. Electronically Signed Paula Sanchez M.D. Gross Description A. Received in formalin, labeled "biopsy polyp rectum" is a gregorio, irregular portion of soft tissue measuring 0.4 cm. in greatest dimension. The specimen is submitted in toto in one cassette. B. Received in formalin, labeled "biopsy random rectum" are 6 gregorio, irregular portions of soft tissue ranging from 0.2-0.4 cm. in greatest dimension. The specimens are submitted in toto in one cassette. /04/07/2019 [place]/04/07/2019
== END 2019-04-07 11:15 | disposition home or self-care (01) ==
LOC: FASU-ENDO 09:36
PROVIDERS: ATTEND Internal Medicine Gastroenterology
PROC: 0DBN8ZX Excision of Sigmoid Colon, Via Natural or Artificial Opening Endoscopic, Diagnostic (ICD-10-PCS; 2019-04-07)
PROC: 0DBP8ZX Excision of Rectum, Via Natural or Artificial Opening Endoscopic, Diagnostic (ICD-10-PCS; principal; 2019-04-07 10:19)
DX: Z85.048 Personal history of other malignant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, rectosigmoid junction, and anus (principal); K57.30 Diverticulosis of large intestine without perforation or abscess without bleeding; K62.1 Rectal polyp; K63.5 Polyp of colon; K64.1 Second degree hemorrhoids

== ENCOUNTER 2019-10-11 08:40 | Day surgery (SDC) | payer OTHER, BC ==
[2019-10-11] MEDS: CIPROFLOXACIN 0.3% EYE DROPS 5 ML BOTTLE ONE ×3 (09:15→09:25)
[2019-10-11] MEDS: PHENYLEPHRINE 2.5% OPHTH SOLN 15 ML BOTTLE ONE ×3 (09:15→09:25)
[2019-10-11] MEDS: TROPICAMIDE 1% OPHTH SOLN 15 ML BOTTLE ONE ×3 (09:15→09:25)
[2019-10-11] MEDS: CYCLOPENTOLATE 2% OPHTH SOLN 2 ML BOTTLE ONE ×3 (09:15→09:25)
[2019-10-11 09:45] VITALS: BMI 26.6
[2019-10-11] MEDS ORDERED: MIDAZOLAM HCL 2 MG/2 ML SINGLE DOSE VIAL ONE (11:13)
[2019-10-11 12:08] VITALS: BP 122/79; TEMP 98.1
[2019-10-11 12:19] VITALS: PULSE 77
--- NOTE | 2019-10-11 19:47 | OP ---
DATE OF OPERATION: 10/11/2019 OPERATIVE PROCEDURE: Lens Phacoemulsification with Posterior Chamber Intraocular Lens Placement Left Eye PREOPERATIVE DIAGNOSIS: Visually Significant Cataract of Left Eye POSTOPERATIVE DIAGNOSIS: Visually Significant Cataract of Left Eye SURGEON: Armando Prado M.D. ANESTHESIA: MAC PROCEDURE: The patient was brought to the operating room and placed under monitored anesthesia care by Anesthesia. A drop of Tetracaine was then placed over the left eye. The patient was then prepped and draped in the usual sterile manner. A speculum was then placed over the left eye. The eye was then well irrigated with copious amounts of BSS (balanced salt solution). The operating microscope was then moved into position. A paracentesis was performed using a 15 degree blade. At this point 0.5 mL of 1% preservative-free lidocaine was injected into the anterior chamber. Amvisc plus was then injected into the anterior chamber. A clear corneal incision was then formed using a 2.2 mm keratome. A capsulorrhexis was then performed in a continuous circular fashion beginning with a cystotome, completed with an Utratas forceps. Hydrodissection was then performed using BSS on a cannula. The phaco probe was then introduced through the corneal wound and the cataract was removed using the phaco chop technique. Approximately 3 seconds of absolute phaco time was used. The remaining cortex was then removed using irrigation and aspiration with an I/A probe. The capsule was then filled with regular Amvisc and the capsule was noted to be intact. A previously selected foldable posterior chamber intraocular lens was then injected into the capsule through the corneal wound using a lens injector. It was then dialed into position using a Sinskey hook. The Amvisc was then removed using irrigation and aspiration. Miostat was then injected through the paracentesis to constrict the pupil. The paracentesis and corneal wound were then hydrated and noted to be water tight. A drop of Maxitrol was then placed over the eye. The speculum was removed and clear shield was taped over the eye. The patient tolerated the procedure well and there were no surgical complications. The patient was asked to follow up in my office the next day. ARMANDO PRADO M.D. KAYDEN/[id number]
== END 2019-10-11 12:25 | disposition home or self-care (01) ==
LOC: FASU 08:40
PROVIDERS: ATTEND Ophthalmology
PROC: 08RK3JZ Replacement of Left Lens with Synthetic Substitute, Percutaneous Approach (ICD-10-PCS; principal; 2019-10-11 11:19)
DX: H26.8 Other specified cataract (principal)

== ENCOUNTER 2019-10-27 06:26 | Day surgery (SDC) | payer OTHER, BC ==
[2019-10-21 12:05] VITALS: BMI 25.8
[2019-10-27] MEDS: PHENYLEPHRINE 2.5% OPHTH SOLN 15 ML BOTTLE ONE ×3 (07:10→07:20)
[2019-10-27] MEDS: CIPROFLOXACIN 0.3% EYE DROPS 5 ML BOTTLE ONE ×3 (07:10→07:20)
[2019-10-27] MEDS: CYCLOPENTOLATE 2% OPHTH SOLN 2 ML BOTTLE ONE ×3 (07:10→07:20)
[2019-10-27] MEDS: TROPICAMIDE 1% OPHTH SOLN 15 ML BOTTLE ONE ×3 (07:10→07:20)
[2019-10-27] MEDS ORDERED: LIDOCAINE 1% P/F 10 MG/ML VIAL ONE (07:17)
[2019-10-27] MEDS ORDERED: BSS (NA/CA/MG/K) BALANCED SALT SOLUTION OPHTH SOLN 15 ML BOTTLE ONE (07:18)
[2019-10-27] MEDS ORDERED: TETRACAINE 0.5% OPHTH SOLN 2 ML BOTTLE ONE (07:18)
[2019-10-27] MEDS ORDERED: NEO/POLYMYX B SULF/DEXAMETH OPHTHALMIC 5ML BOTTLE ONE (07:20)
[2019-10-27] MEDS ORDERED: CARBACHOL 0.01% INTRA-OCULAR 1.5 ML VIAL ONE (07:20)
[2019-10-27] MEDS ORDERED: EPINEPHrine/PF 1 MG/1 ML (1:1,000) AMPULE ONE (07:21)
[2019-10-27] MEDS ORDERED: MIDAZOLAM HCL 2 MG/2 ML SINGLE DOSE VIAL ONE (08:01)
[2019-10-27 09:10] VITALS: BP 145/78; PULSE 85; TEMP 97.7
--- NOTE | 2019-10-27 12:15 | OP ---
DATE OF OPERATION: 10/27/2019 OPERATIVE PROCEDURE: Lysis of Posterior Iris Lens Synechia and Lens Phacoemulsification with Posterior Chamber Intraocular Lens Placement, Right Eye PREOPERATIVE DIAGNOSIS: Visually Significant Cataract and Posterior Synechia of Right Eye POSTOPERATIVE DIAGNOSIS: Visually Significant Cataract and Posterior Synechia of Right Eye SURGEON: Armando Prado M.D. ANESTHESIA: MAC PROCEDURE: The patient was brought to the operating room and placed under monitored anesthesia care by Anesthesia. A drop of Tetracaine was then placed over the right eye. The patient was then prepped and draped in the usual sterile manner. A speculum was then placed over the right eye. The eye was then well irrigated with copious amounts of BSS (balanced salt solution). The operating microscope was then moved into position. A paracentesis was performed using a 15 degree blade. At this point 0.5 mL of 1% preservative-free lidocaine was injected into the anterior chamber. Amvisc plus was then injected into the anterior chamber. A clear corneal incision was then formed using a 2.2 mm keratome. A cyclodialysis spatula was then used to break the posterior synechia. Two Synthorxen iris hooks were then used to stretch the iris. More Amvisc plus was then injected into the anterior chamber. A capsulorrhexis was then performed in a continuous circular fashion beginning with a cystotome and completed with an Utratas forceps. Hydrodissection was then performed using BSS on a cannula. The phaco probe was then introduced through the corneal wound and the cataract was removed using the phaco chop technique. Approximately 3 seconds of absolute phaco time was used. The remaining cortex was then removed using irrigation and aspiration with an I/A probe. The capsule was then filled with regular Amvisc and the capsule was noted to be intact. A previously selected foldable posterior chamber intraocular lens was then injected into the capsule through the corneal wound using a lens injector. It was then dialed into position using a Sinskey hook. The Amvisc was then removed using irrigation and aspiration. Miostat was then injected through the paracentesis to constrict the pupil. The paracentesis and corneal wound were then hydrated and noted to be water tight. A drop of Maxitrol was then placed over the eye. T he speculum was removed and clear shield was taped over the eye. The patient tolerated the procedure well and there were no surgical complications. The patient was asked to follow up in my office the next day. ARMANDO PRADO M.D. [id number]
== END 2019-10-27 09:10 | disposition home or self-care (01) ==
LOC: FASU 06:26
PROVIDERS: ATTEND Ophthalmology
PROC: 08RJ3JZ Replacement of Right Lens with Synthetic Substitute, Percutaneous Approach (ICD-10-PCS; principal; 2019-10-27 08:13)
DX: H26.8 Other specified cataract (principal); H21.541 Posterior synechiae (iris), right eye

== ENCOUNTER 2019-12-22 10:06 | Day surgery (SDC) | payer OTHER, BC ==
--- OUTSIDE RECORDS SUMMARY | 2019-12-02 10:05 | XMS ---
:1945 Author Organization [facility] Care Team Providers Name Role Phone Emanuel Mason MD Unavailable Unavailable Eulogio Baez MD Unavailable Unavailable Lufrano Unavailable Unavailable Lufrano Unavailable Unavailable Lufrano Unavailable Unavailable Lufrano Unavailable Unavailable Lufrano Unavailable Unavailable Lufrano Unavailable Unavailable Lufrano Unavailable Unavailable MD Kristine Unavailable Unavailable Noyer Unavailable Unavailable Noyer Unavailable Unavailable Noyer Unavailable Unavailable Noyer Unavailable Unavailable Noyer Unavailable Unavailable Noyer Unavailable Unavailable MD Regla Unavailable Unavailable Frager, ABNORMAL PSYCHOLOGY TEACHER Unavailable Unavailable Re-disclosure Warning The records that you are about to access may contain information from federally- assisted alcohol or drug abuse programs. If such information is present, then the following federally mandated warning applies: This information has been disclosed to you from records protected by federal confidentiality rules (42 CFR part 2). The federal rules prohibit you from making any further disclosure of this information unless further disclosure is expressly permitted by the written consent of the person to whom it pertains or as otherwise permitted by 42 CFR part 2. A general authorization for the release of medical or other information is NOT sufficient for this purpose. The Federal rules restrict any use of the information to criminally investigate or prosecute any alcohol or drug abuse patient.The records that you are about to access may contain highly sensitive health information, the redisclosure of which is protected by Article 27-F of the [facility] Public Health law. If you continue you may haveaccess to information: Regarding HIV / AIDS; Provided by facilities licensed or operated by the [facility] Office of Mental Health; or Provided by the [facility] Office for People With Developmental Disabilities. If such information is present, then the following [facility] mandated warning applies: This information has been disclosed to you from confidential records which are protected by state law. State law prohibits you from making any further disclosure of this information without the specific written consent of the person to whom it pertains, or as otherwise permitted by law. Any unauthorized further disclosure in violation of state law may result in a fine or skilled nursing sentence or both. A general authorization for the release of medical or other information is NOT sufficient authorization for further disclosure. Advance Directives Directive Description Route Deliverer Administrative Dietitian Status Observation Data S ource(s) Description Advance Yes completed [facility] directive Hospital Allergies and Adverse Reactions Type Description Substance Reaction Status Data Source(s ) Drug allergy penicillin G penicillin G RASH MO [facility] Drug allergy No Known Allergies No Known UNKNOWN [facility] Allergies [facility] Allergy to APIS MELLIFERA Synonym(s): BEE Active MEDGE N (St Substance VENOM VENOM; PURE HONEY [facility]'s [facility], BEE VENOM; APIS PC) VENENUM PURUM [HPUS]; BEE VENOM [INCI]; BEE VENOM [WHO-DD]; APIS VENENUM PURUM; ABEILLE DOMESTIQUE VENOM; ALLERGENIC EXTRACT, HONEY BEE VENOM; HONEY BEE VENOM PROTEIN; APIS MELLIFERA VENOM PROTEIN EXTRACT; ALLERGENIC EXTRACT, HONEY BEE VENOM [VANDF]; HONEYBEE VENOM; ALLERGENIC EXTRACT- HONEY BEE VENOM; APIS MELLIFERA ROBIN PROTEIN; AE-VENOM, HONEY BEE; HONEY BEE VENOM; VENOMS, HONEY BEE VENOM Drug allergy PENICILLIN Penicillin G Active MEDGEN ([facility] , ) Adverse Reaction Adverse Reaction Penicillin ME DENT (Digestive Disease [facility] Nutrition [facility] ) Encounters Encounter Providers Location Date Indications Data Source(s ) Attender: Paula 11/29/2019 MEDGEN (S t [facility] [place] 12:00:00 AM [facility]) Office Outpatient Attender: Emanuel 11/23/2019 09:43:00 AM [facility] MDReferrer: EDT Lashell Carmona MD FU Outpatient Attender: Lashell 08/24/2019 10:00:00 AM RECTA L CA Carla Carmona MD EDT [facility] RECTAL CA Outpatient Attender: Emanuel 06/24/2019 08:47:00 AM FU [facility] MDReferrer: NEGRO Carmona MD FU Outpatient Attender: Max 06/01/2019 10:00:00 NEOPLASM UNCERTAIN [place] Noyer AM EDT - 09/28/2019 BEHAVIOR OTHER H ospital 08:14:00 AM EDT DIGESTIVE ORGANS NEOPLASM UNCERTAIN BEHAVIOR OTHER DIGEST SHAHRIAR ORGANS Patient discharged. Outpatient Attender: Lashell 01/19/2019 09:41:00 RECTAL C ANCER Carla Carmona MD AM EST C20 PREV 09/28/18 [facility] RECTAL CANCER C20 PREV 09/28/18 Outpatient Attender: Emanuel 12/24/2018 07:49:00 FOLLOW-UP [facility] MDReferrer: AM EDT Ho spiaubrey Carmona MD FOLLOW-UP P Attender: Lashell Carmona 10/26/2018 07:45:00 AM R ECTAL CANCER [place] MDAdmitter: Lashell Carmona [facility] RECTAL CANCER Outpatient Attender: Lashell 09/28/2018 08:10:00 RECTAL C A/STAGING Carla Carmona MD AM EDT prev 06/15/18 [facility] RECTAL CA/STAGING prev 06/15/18 Outpatient Attender: Kelly 09/24/2018 RECTAL CANCER-RESTA GING [place] Frager NPAttender: 08:19:00 AM EDT H kadie Carmona MD RECTAL CANCER-RESTAGING P Attender: Emanuel 08/31/2018 12:04:00 AM RADIAT ION [facility] MDReferrer: NEGRO Carmona MD RADIATION Outpatient Attender: Emnauel 08/17/2018 10:32:00 PHYS ACCO UNT [facility] AM [facility] MDReferrer: Lashell Carmona MD PHYS ACCOUNT VAIN Outpatient Attender: Emanuel 08/03/2018 08:30:00 PHYS [facility]NT [facility] Lashell Carmona MD PHYS ACCOUNT VAIN Outpatient Attender: Emanuel 08/01/2018 12:05:00 RADIATION [place] Vainshtein MDReferrer: AM EDT - 08/30/2018 [facility] Lashell Carmona MD 12:01:00 AM EDT RADIATION Outpatient Attender: Emanuel 07/11/2018 03:51:00 PHYS ACCT [place] Vainshtein PM EDT [facility] MDReferrer: Lashell Carmona MD PHYS ACCT VAIJE Outpatient Attender: Emanuel 07/01/2018 08:39:00 PHYS ACT VAIN [place] Vainshtein AM EDT [facility] MDReferrer: Lashell Carmona MD PHYS ACT VAIN Outpatient Attender: Emanuel 07/01/2018 01:16:00 RADIATION [place] Vainshtein MDReferrer: AM EDT - 07/31/2018 [facility] Lashell Carmona MD 12:01:00 AM EDT RADIATION Patient discharged. Outpatient Attender: Eulogio 06/19/2018 02:02:00 PHYS ACCOUN T [place] Baez MDReferrer: PM EDT [facility] Lashell Carmona MD PHYS ACCOUNT STERAN Outpatient Attender: Emanuel 06/19/2018 02:01:00 PHYS ACCO UNT [place] Vainshtein PM EDT [facility] MDReferrer: Lashell Carmona MD PHYS ACCOUNT VAIN Outpatient Attender: Emanuel 06/19/2018 01:59:00 RADIATION [place] Vainshtein MDReferrer: PM EDT - 06/30/2018 [facility] Lashell Carmona MD 12:01:00 AM EDT RADIATION Outpatient Attender: Emanuel 06/17/2018 10:17:00 RE-CONSUL T [place] Vainshtein MDReferrer: AM EDT Ho spital Lashell Carmona MD RE-CONSULT Outpatient Attender: Micheal 06/15/2018 10:06:00 RECTAL CAN CER Carla Arauz MD AM EDT prev 01/23/18 [facility] RECTAL CANCER prev 01/23/18 Outpatient Attender: Micheal 06/01/2018 OXALIPLATIN RECTAL Carla Arauz MD 08:22:00 AM EDT CA Hospit al OXALIPLATIN RECTAL CA P Attender: Micheal 05/11/2018 11:00:00 OXALIPLATI N RECTAL CA Carla Arauz MD AM EDT Hospital OXALIPLATIN RECTAL CA P Attender: Micheal 04/20/2018 01:30:00 OXALIPLATI N-RECTAL CA Carla Arauz MD PM EST Hospital OXALIPLATIN-RECTAL CA Outpatient Attender: Micheal 03/30/2018 OXALIPLATIN- RECTAL Carla Arauz MD 08:18:00 AM EST CA Hospit al OXALIPLATIN- RECTAL CA Outpatient Attender: Micheal 03/09/2018 OXALIPLATIN- RECTAL Carla Arauz MD 07:52:00 AM EST CA Hospit al OXALIPLATIN- RECTAL CA Outpatient Attender: Paula 01/14/2018 08:26:00 COLON CANCE R Carla Shafer Lufrano AM [facility] COLON CANCER Functional Status Immunizations Vaccine Date Status Description Data Source(s) New in 2011. IIV4 11/26/2017 12:00:00 completed ME DUTCHEN ([facility] EDT Medical, PC) Medications Medication Brand Start Product Dose Route Administrative Pharmacy [facility] Indications Reaction Description Data Name Date Form Instructions Instructions Source(s) SUPREP 11/28/ LIQUID 1 complet SUPREP SLAVA L MEDGEN (St BOWEL PREP 2019 ed PREP KIT [facility] s KIT:[id number] 12:00: Medica l, 00 AM PC) EDT SUPREP 03/01/ LIQUID 1 complet SUPREP SLAVA L MEDGEN (St BOWEL PREP [address] [facility] KIT:[id number] 12:00: Medica l, 00 AM PC) EST quinapril QUINAP 12/03/ TABLET 180 complet QUINAP RIL MEDGEN (St 20 MG Oral RIL:31 2018 ed [facility] Tablet 2749 12:00: Medical, QUINAPRIL:3 00 AM PC) [address]23 EDT atorvastati ATORVA 12/03/ TABLET 90 complet ATOR VASTATIN MEDGEN (St n 40 MG STATIN 2018 ed [facility] Oral Tablet :83318 12:00: Medi alan, ATORVASTATI 1 00 AM PC) N:[id number] EDT SUPREP 10/05/ LIQUID 1 complet SUPREP SLAVA L MEDGEN (St BOWEL PREP 2019 ed PREP KIT [facility] s KIT:[id number] 12:00: Medica l, 00 AM PC) EDT 200 ACTUAT PROAIR 04/01/ AEROSOL 360 complet PROA IR HFA MEDGEN (St Albuterol HFA:74 2019 ed [facility] 0.09 5679 12:00: Medical, MG/ACTUAT 00 AM PC) Metered EST Dose Inhaler PROAIR HFA:[id number] Clotrimazol CLOTRI 10/24/ LOZENGE 70 complet SAROJ TRIMAZOLE MEDGEN (St e 10 MG MAZOLE 2018 ed VANIA [facility] Oral VANIA 12:00: Medical, Lozenge :01898 00 AM PC) CLOTRIMAZOL 1 EDT E VANIA:3093 71 120 ACTUAT ASMANE 06/20/ AEROSOL 1 complet ASMA NEX HFA MEDGEN (St mometasone X 2018 ed [facility] furoate 0.2 HFA:15 12:00: Medi alan, MG/ACTUAT 69985 00 AM PC) Metered EDT Dose Inhaler [Asmanex] ASMANEX HFA:[id number] Prednisone PREDNI 02/19/ TABLET 45 complet PREDN ISONE MEDGEN (St 10 MG Oral SONE:1 2016 ed [facility] Tablet 85115 12:00: Medical, PREDNISONE: 00 AM PC) [id number] EST 0.5 ML PREVNA complet PREVNAR 13 MEDGEN (St Streptococc R 2017 ed [facility] us 13:901 12:00: Medical, pneumoniae 644 00 AM PC) serotype 1 EST capsular antigen diphtheria [id number] protein conjugate vaccine 0.0044 MG/ML / Streptococc us pneumoniae serotype 14 capsular antigen diphtheria [id number] protein conjugate vaccine 0.0044 MG/ML / Streptococc us pneumonia PREVNAR 13:981349 pregabalin LYRICA 10/29/ CAPSULE 180 complet LYRI CA MEDGEN (St 150 MG Oral :14212 2016 ed [facility] Capsule 0 12:00: Medical, LYRICA:4834 00 AM PC) 40 EDT Azelastine AZELAS 10/29/ SPRAY 1 complet AZELAS CHARLENE MEDGEN (St hydrochlori CHARLENE 2017 ed NASAL [facility] de 1 MG/ML NASAL: 12:00: Medic al, Nasal [place]ove 358710 00 AM PC) AZELASTINE EDT NASAL:19304 9 120 ACTUAT FLONAS 10/29/ SPRAY 3 complet FLONAS E MEDGEN (St Fluticasone E:8963 2017 ed [facility] propionate 21 12:00: Medical , 0.05 00 AM PC) MG/ACTUAT EDT Nasal Inhaler FLONASE:896 321 Azelastine Azelas active MEDEN T HCL (Nasal) charlene (Digesti ve HCL Disease & (Nasal Nutrition ) [facility]) 60 ACTUAT Symbic active MEDENT Budesonide ort (Digestiv e 0.08 Disease & MG/ACTUAT / Nutritio n formoterol [facility] 0.0045 r) MG/ACTUAT Metered Dose Inhaler [Symbicort] pregabalin Pregab CAPSULE 150 ORAL active Wh ite 150 MG Oral perla mg [place] Capsule [facility] [Lyrica] Pregabalin Prednisone Predni active MEDEN T 10 MG Oral sone (Digestiv e Tablet Disease & Nutrition [facility]) quinapril Quinap active MEDENT 20 MG Oral ril (Digestiv e Tablet HCL Disease & Nutrition [facility]) No known complet White medications ed [facility] atorvastati Atorva ORAL active MEDE NT n 40 MG statin (Digestive Oral Tablet Calciu Diseas e & m Nutrition [facility]) quinapril Quinap TABLET 20 mg ORAL active Whi te 40 MG Oral ril [place] [facility] [Accupril] Quinapril Hcl atorvastati Atorva TABLET 40 mg ORAL active W colleen n 40 MG statin [place] Oral Tablet [facility] Hospit al [Lipitor] m Atorvastati n Calcium No known complet [facility] medications ed [facility] pregabalin Lyrica active MEDEN T 150 MG Oral (Digesti ve Capsule Disease & [Lyrica] Nutrition [facility]) Budesonide/ AEROSOL, 1 RESPIR active White Formoterol SPRAY ATORY [place] [facility]umarate [facility]) prednisolon Predni TABLET 10 mg ORAL active W colleen e 5 MG Oral solone [place] Tablet [facility] [MILLIPRED] Prednisolon e Insurance Providers Payer name Policy type Policy ID Covered Covered republican's Policy P kael / Coverage republican ID relationship to Aguero Inf ormation type aguero BC PPO [id number] SP [id number] MEDICARE [id number] SP [id number] THE EMPIRE [id number] 1 [id number] [place] [id number] 1 [id number] PART B DOWNSTATE [place] [id number] PT [id number] HEALTHCARE PPO MEDICARE PART [id number] PT [id number] ONLY BLUE CROSS [id number] PT [id number] OTHER MEDICARE [id number] PT [id number] BLUE CROSS [id number] PT [id number] OTHER BLUE CROSS [id number] PT [id number] OTHER UNITED [id number] PT [id number] HEATHCARE OTHER BLUE CROSS [id number] PT [id number] OTHER BLUE CROSS PPO [id number] PT [id number] MEDICARE [id number] PT [id number] BLUE CROSS [id number] PT [id number] OTHER BLUE CROSS IND [id number] PT [id number] [place] [id number] 1 [id number] [facility] [id number] PT [id number] EMPIRE PLAN [place] [id number] PT [id number] HEATHCARE OTHER MEDICARE PART [id number] PT [id number] ONLY BLUE CROSS [id number] OTHER Problems, Conditions, and Diagnoses Code Display Name Description Problem Effective Data Type Dates Source(s) 51026424 Essential hypertension Essential hypertension Problem 0 03/22/2019 MEDENT (disorder) 12:00:00 (Digestive AM EST Disease & [facility]) [id number] Pure Pure Problem 03/22/2019 MEDENT hypercholesterolemia hypercholesterolemia 12:00 :00 (Digestive (disorder) AM EST Disease & Nutrition [facility]) E78.5 Hyperlipidemia, HYPERLIPIDEMIA, Problem 10/13/2018 MEDG EN (St unspecified UNSPECIFIED 12:00:00 Sandra MANRIQUEZ T Medical, PC) C18.9 Malignant neoplasm of MALIGNANT NEOPLASM OF Problem 07/2017 MEDGEN ([address] colon, unspecified COLON, UNSPECIFIED 12:00:00 Sandra [facility]QUEZ [facility] Medical, PC) K59.00 Constipation, CONSTIPATION, Problem 12/08/2017 MEDGEN ( St unspecified UNSPECIFIED 12:00:00 [facility], ) J20.8 Acute bronchitis due ACUTE BRONCHITIS DUE Problem 06/26 MEDGEN (St to other specified TO OTHER SPECIFIED 12:00:00 [facility]'s organisms ORGANISMS [facility] Medical, ) Z91.19 Patient's PATIENT`S Problem 06/20/2017 MEDGEN (St noncompliance with NONCOMPLIANCE WITH 12:00:00 [facility] other medical OTHER MEDICAL [facility] Medical, treatment and regimen TREATMENT AND REGIMEN PC) Z23 Encounter for ENCOUNTER FOR Problem 02/19/2017 MEDGEN ( St immunization IMMUNIZATION 12:00:00 [facility], ) Z71.89 Other specified OTHER SPECIFIED Problem 10/29/2016 MEDG EN (St counseling COUNSELING 12:00:00 [facility], ) G70.00 Myasthenia gravis MYASTHENIA GRAVIS Problem 10/29/2016 MEDGEN (St without (acute) WITHOUT (ACUTE) 12:00:00 [facility] EXACERBATION [facility], ) E78.2 Mixed hyperlipidemia MIXED HYPERLIPIDEMIA Problem 10/29 MEDGEN (St 12:00:00 [facility], ) G50.0 Trigeminal neuralgia TRIGEMINAL NEURALGIA Problem 10/29 MEDGEN (St 12:00:00 [facility], ) J45.20 Mild intermittent MILD INTERMITTENT Problem 10/29/2016 MEDGEN (St asthma, uncomplicated ASTHMA, UNCOMPLICATED 12: 00:00 [facility], ) I10 Essential (primary) ESSENTIAL (PRIMARY) Problem 017 MEDGEN (St hypertension HYPERTENSION 12:00:00 [facility], ) 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 10:11:00 [facility] Z87.891 Personal history of Z87.891 Diagnosis 09/28/2019 [facility] nicotine dependence 08:13:00 [facility] Z85.048 Personal history of Z85.048 Diagnosis 09/28/2019 White 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, EDT Hospi aubrey rectosigmoid junction, and anus Z79.52 intermediate frame tender (current) Z79.52 Diagnosis 09/28/2019 White use of systemic 08:13:00 [place] steroids AM EDT Hospital G70.00 Myasthenia gravis G70.00 Diagnosis 09/28/2019 [facility] without (acute) 08:13:00 [place] exacerbation AM EDT Hospital E78.5 Hyperlipidemia, E78.5 Diagnosis 09/28/2019 [facility] unspecified 08:13:00 [place] AM EDT Hospital K76.89 Other specified K76.89 Diagnosis 09/28/2019 [facility] diseases of liver 08:13:00 [place] AM EDT Hospital K80.20 Calculus of K80.20 Diagnosis 09/28/2019 White gallbladder without 08:13:00 Plain s cholecystitis without AM EDT Hos pital obstruction K86.2 Cyst of pancreas K86.2 Diagnosis 09/28/2019 White 08:13:00 [place] EDT Hospital Z92.21 Personal history of Z92.21 Diagnosis 08/24/2019 [facility] antineoplastic 08:42:00 [place] chemotherapy EDT Hospital Z08 Encounter for Z08 Diagnosis 08/24/2019 White follow-up examination 08:42:00 [place] ins after completed AM EDT Hospital treatment for malignant neoplasm K86.89 Other specified K86.89 Diagnosis 09/24/2018 [facility] diseases of pancreas 08:19:00 Plai ns AM EDT Hospital Z88.0 Allergy status to Z88.0 Diagnosis 03/09/2018 [facility] penicillin 07:52:00 [facility] J45.909 Unspecified asthma, J45.909 Diagnosis 03/09/2018 [facility] uncomplicated 07:52:00 [facility] I10 Essential (primary) I10 Diagnosis 03/09/2018 [facility] hypertension 07:52:00 [facility] Z51.11 Encounter for Z51.11 Diagnosis 03/09/2018 [facility] antineoplastic 07:52:00 [place] chemotherapy [facility] Surgeries/Procedures Procedure Description Date Indications Data Source(s) Documentation of 11/29/2019 MEDGEN ([facility] current medications 12:00:00 AM Medical, PC) (procedure) EDT OFFICE OUTPATIENT VISIT 11/29/2019 MEDG EN ([facility] 25 MINUTES 12:00:00 AM Medical, PC) EDT UPPER GI NDSC W/NDSC 09/28/2019 MEDENT (Digestive ULTRASOUND EXAM 12:00:00 AM Disease & EDT Nutrition [facility]) Documentation of 04/26/2019 MEDGEN ([facility] current medications 12:00:00 AM Medical, PC) (procedure) EST Documentation of 04/26/2019 MEDGEN ([facility] current medications 12:00:00 AM Medical, PC) (procedure) EST OFFICE OUTPATIENT VISIT 04/26/2019 MEDG EN ([facility]'s 15 MINUTES 12:00:00 AM Medical, PC) EST Documentation of 03/01/2019 MEDGEN ([facility] current medications 12:00:00 AM Medical, PC) (procedure) EST Documentation of 03/01/2019 MEDGEN ([facility] current medications 12:00:00 AM Medical, PC) (procedure) EST OFFICE OUTPATIENT VISIT 11/24/2018 MEDG EN ([facility]'s 15 MINUTES 12:00:00 AM Medical, PC) EDT Documentation of 11/16/2018 MEDGEN ([facility] current medications 12:00:00 AM Medical, PC) (procedure) EDT Documentation of 11/16/2018 MEDGEN ([facility] current medications 12:00:00 AM Medical, PC) (procedure) EDT Documentation of 11/16/2018 MEDGEN ([facility] current medications 12:00:00 AM Medical, PC) (procedure) EDT Documentation of 11/16/2018 MEDGEN ([facility] current medications 12:00:00 AM Medical, PC) (procedure) EDT OFFICE OUTPATIENT VISIT 11/16/2018 MEDG EN ([facility]'s 15 MINUTES 12:00:00 AM Medical, PC) EDT OFFICE OUTPATIENT VISIT 10/13/2018 MEDG EN ([facility]'s 15 MINUTES 12:00:00 AM Medical, PC) EDT COLLECTION VENOUS BLOOD 10/13/2018 MEDG EN ([facility]'s VENIPUNCTURE 12:00:00 AM Medical, PC) EDT Documentation of 10/05/2018 MEDGEN ([facility] current medications 12:00:00 AM Medical, PC) (procedure) EDT Documentation of 10/05/2018 MEDGEN ([facility] current medications 12:00:00 AM Medical, PC) (procedure) EDT Documentation of 10/05/2018 MEDGEN ([facility]'s current medications 12:00:00 AM Medical, PC) (procedure) EDT Documentation of 10/05/2018 MEDGEN ([facility] current medications 12:00:00 AM Medical, PC) (procedure) EDT OFFICE OUTPATIENT NEW 10/05/2018 MEDGEN ([facility] 30 MINUTES 12:00:00 AM Medical, PC) EDT Documentation of 09/28/2018 MEDGEN ([facility] current medications 12:00:00 AM Medical, PC) (procedure) EDT Documentation of 09/28/2018 MEDGEN ([facility] current medications 12:00:00 AM Medical, PC) (procedure) EDT Documentation of 09/28/2018 MEDGEN ([facility]'s current medications 12:00:00 AM Medical, PC) (procedure) EDT Documentation of 09/28/2018 MEDGEN ([facility] current medications 12:00:00 AM Medical, PC) (procedure) EDT Documentation of 09/28/2018 MEDGEN ([facility] current medications 12:00:00 AM Medical, PC) (procedure) EDT OFFICE OUTPATIENT VISIT 09/28/2018 MEDG EN ([facility]'s 25 MINUTES 12:00:00 AM Medical, PC) EDT Magnetic resonance Magnetic resonance 06/15/2018 i te [place] imaging of pelvis with imaging of pelvis 12:00:00 AM Hospital gadolinium with gadolinium EDT Injection, gadobutrol, GADOBUTROL INJECTION 06/15/2018 [place] 0.1 ml 12:00:00 AM Hospital EDT Mri pelvis w/dye Mri pelvis w/dye 06/15/2018 Carla do 12:00:00 AM Hospital EDT Injection, palonosetron PALONOSETRON HCL 06/01/2018 [place] hcl, 25 mcg 12:00:00 AM Hospital EDT Injection, INJECTION, 06/01/2018 [place] dexamethasone sodium DEXAMETHSONE SODIUM 12:00:00 AM Hospital phosphate, 1mg PHOSPHATE, 1 MG EDT Infusion, normal saline NORMAL SALINE 06/01/2018 Whi te [place] solution , 250 cc SOLUTION INFUS 12:00:00 AM Hospital EDT Injection, oxaliplatin, OXALIPLATIN 06/01/2018 Whit e [place] 0.5 mg 12:00:00 AM Hospital EDT 5% dextrose/water (500 5% DEXTROSE/WATER 06/01/2018 [place] ml = 1 unit) 12:00:00 AM Hospital EDT Comprehen metabolic Comprehen metabolic 06/01/2018 W colleenedward Shafer panel panel 12:00:00 AM Hospital EDT Complete cbc w/auto Complete cbc w/auto 06/01/2018 W colleen Shafer diff wbc diff wbc 12:00:00 AM Hospital EDT Tx/pro/dx inj new drug Tx/pro/dx inj new 06/01/2018 [place] addon drug addon 12:00:00 AM Hospital EDT Chemo iv infusion addl Chemo iv infusion 06/01/2018 [place] hr addl hr 12:00:00 AM Hospital EDT Chemo iv infusion 1 hr Chemo iv infusion 1 06/01/2018 [place] hr 12:00:00 AM Hospital EDT Documentation of 04/01/2018 MEDGEN ([facility] current medications 12:00:00 AM Medical, PC) (procedure) EST OFFICE OUTPATIENT VISIT 04/01/2018 MEDG EN ([facility]'s 25 MINUTES 12:00:00 AM Medical, PC) EST Documentation of 01/19/2018 MEDGEN ([facility] current medications 12:00:00 AM Medical, PC) (procedure) EST Documentation of 01/19/2018 MEDGEN ([facility]'s current medications 12:00:00 AM Medical, PC) (procedure) EST Documentation of 01/19/2018 MEDGEN ([facility]'s current medications 12:00:00 AM Medical, PC) (procedure) EST Documentation of 01/19/2018 MEDGEN ([facility]'s current medications 12:00:00 AM Medical, PC) (procedure) EST OFFICE OUTPATIENT VISIT 01/19/2018 MEDG EN ([facility]'s 15 MINUTES 12:00:00 AM Medical, PC) EST Documentation of 01/06/2018 MEDGEN ([facility]'s current medications 12:00:00 AM Medical, PC) (procedure) EST Documentation of 01/06/2018 MEDGEN ([facility]'s current medications 12:00:00 AM Medical, PC) (procedure) EST Documentation of 01/06/2018 MEDGEN ([facility]'s current medications 12:00:00 AM Medical, PC) (procedure) EST Documentation of 01/06/2018 MEDGEN ([facility]'s current medications 12:00:00 AM Medical, PC) (procedure) EST Documentation of 01/06/2018 MEDGEN ([facility] current medications 12:00:00 AM Medical, PC) (procedure) EST Documentation of 01/06/2018 MEDGEN ([facility]'s current medications 12:00:00 AM Medical, PC) (procedure) EST Documentation of 01/06/2018 MEDGEN ([facility] current medications 12:00:00 AM Medical, PC) (procedure) EST Documentation of 01/06/2018 [facility] ([facility] current medications 12:00:00 AM [facility]) (procedure) EST Documentation of 01/06/2018 [facility] ([facility] current medications 12:00:00 AM [facility], [facility]) (procedure) EST OFFICE OUTPATIENT VISIT 01/06/2018 MEDG EN ([facility] 25 MINUTES 12:00:00 AM Medical, PC) EST Documentation of 01/05/2018 [facility] ([facility] current medications 12:00:00 AM [facility], PC) (procedure) EST Documentation of 01/05/2018 [facility] ([facility] current medications 12:00:00 AM Medical, PC) (procedure) EST Documentation of 01/05/2018 [facility] ([facility] current medications 12:00:00 AM Medical, PC) (procedure) EST Documentation of 01/05/2018 [facility] ([facility] current medications 12:00:00 AM [facility], [facility]) (procedure) EST Documentation of 01/05/2018 [facility] ([facility] current medications 12:00:00 AM [facility], PC) (procedure) EST Documentation of 01/05/2018 [facility] ([facility] current medications 12:00:00 AM [facility], [facility]) (procedure) EST Documentation of 01/05/2018 [facility] ([facility] current medications 12:00:00 AM [facility], PC) (procedure) EST Documentation of 01/05/2018 [facility] ([facility] current medications 12:00:00 AM [facility], PC) (procedure) EST Documentation of 01/05/2018 [facility] ([facility] current medications 12:00:00 AM [facility], PC) (procedure) EST Documentation of 01/05/2018 [facility] ([facility] current medications 12:00:00 AM [facility], [facility]) (procedure) EST OFFICE OUTPATIENT VISIT 01/05/2018 MEDG EN ([facility] 15 MINUTES 12:00:00 AM Medical, PC) EST Documentation of 12/08/2017 [facility] ([facility] current medications 12:00:00 AM [facility], PC) (procedure) EDT Documentation of 12/08/2017 [facility] ([facility] current medications 12:00:00 AM [facility], PC) (procedure) EDT Documentation of 12/08/2017 [facility] ([facility] current medications 12:00:00 AM Medical, PC) (procedure) EDT Documentation of 12/08/2017 [facility] ([facility] current medications 12:00:00 AM [facility], PC) (procedure) EDT Documentation of 12/08/2017 [facility] ([facility] current medications 12:00:00 AM [facility], PC) (procedure) EDT Documentation of 12/08/2017 [facility] ([facility] current medications 12:00:00 AM Medical, PC) (procedure) EDT Documentation of 12/08/2017 [facility] ([facility] current medications 12:00:00 AM Medical, PC) (procedure) EDT Documentation of 12/08/2017 [facility] ([facility] current medications 12:00:00 AM [facility], PC) (procedure) EDT Documentation of 12/08/2017 [facility] ([facility] current medications 12:00:00 AM [facility], PC) (procedure) EDT Documentation of 11/26/2017 [facility] ([facility] current medications 12:00:00 AM Medical, PC) (procedure) EDT OFFICE OUTPATIENT VISIT 11/26/2017 MEDG EN ([facility] 25 MINUTES 12:00:00 AM Medical, PC) EDT INFLUENZA VACCINE 11/26/2017 [facility] ([facility] 12:00:00 AM Medical, PC) EDT IMADM PRQ ID SUBQ/IM 11/26/2017 [facility] ([facility] NJXS 1 VACCINE 12:00:00 AM Medical, PC) EDT COLLECTION VENOUS BLOOD 11/26/2017 MEDG EN ([facility] VENIPUNCTURE 12:00:00 AM Medical, PC) EDT OFFICE OUTPATIENT VISIT 10/24/2017 MEDG EN ([facility] 25 MINUTES 12:00:00 AM Medical, PC) EDT Documentation of 06/26/2017 [facility] ([facility] current medications 12:00:00 AM Medical, PC) (procedure) EDT Documentation of 06/26/2017 [facility] ([facility] current medications 12:00:00 AM Medical, ) (procedure) EDT OFFICE OUTPATIENT VISIT 06/26/2017 MED[facility] EN ([facility] 25 MINUTES 12:00:00 AM Medical, PC) EDT Documentation of 06/20/2017 [facility] ([facility] current medications 12:00:00 AM Medical, PC) (procedure) EDT Documentation of 06/20/2017 [facility] ([facility] current medications 12:00:00 AM Medical, ) (procedure) EDT OFFICE OUTPATIENT VISIT 06/20/2017 MEDG EN ([facility] 15 MINUTES 12:00:00 AM Medical, PC) EDT COLLECTION VENOUS BLOOD 06/20/2017 MEDG EN ([facility] VENIPUNCTURE 12:00:00 AM Medical, ) EDT Documentation of 02/19/2017 [facility] ([facility] current medications 12:00:00 AM Medical, PC) (procedure) EST Influenza virus 02/19/2017 [facility] ([facility] vaccine, split virus, 12:00:00 AM [facility], ) when administered to EST individuals 3 years of age and older, for intramuscular use (flulaval) Administration of 02/19/2017 [facility] ([facility] influenza virus vaccine 12:00:00 AM [facility], ) EST Medication 11/02/2016 [facility] ([facility] Reconciliation 12:00:00 AM [facility], ) (procedure) EDT Documentation of 10/29/2016 [facility] ([facility] current medications 12:00:00 AM [facility], ) (procedure) EDT Documentation of 10/29/2016 [facility] ([facility] current medications 12:00:00 AM Medical, ) (procedure) EDT Documentation of 10/29/2016 [facility] ([facility] current medications 12:00:00 AM Medical, ) (procedure) EDT NONINVASIVE EAR/PULSE 10/29/2016 [facility] ([facility] OXIMETRY OVERNIGHT 12:00:00 AM Medical, ) MONITOR EDT COLLECTION VENOUS BLOOD 10/29/2016 MEDG EN ([facility] VENIPUNCTURE 12:00:00 AM Medical, ) EDT Results ID Date Data Source [id number] 10/23/2019 08:10:00 AM EDT [facility] Name Value Range Interpretation Description Data Sup porting Code Source(s) Document(s ) SARS [facility] coronavirus 2 RNA This lab was ordered by RACHELLE garcia [facility] and reported by [facility]. ID Date Data Source [id number] 10/06/2019 09:11:00 AM EDT [facility] Name Value Range Interpretation Description Data Sup porting Code Source(s) Document(s ) SARS [facility] coronavirus 2 RNA This lab was ordered by [facility] JIMMIE garcia [facility] and reported by [facility]. ID Date Data Source [id number] 10/02/2019 12:51:00 PM EDT [facility] Name Value Range Interpretation Description Data Sup porting Code Source(s) Document(s ) SARS [facility] coronavirus 2 RNA This lab was ordered by RACHELLE JIMMIE garcia [facility] and reported by [facility]. ID Date Data Source [id number] 10/13/2018 12:00:00 AM EDT [facility] ([facility], ) Name Value Range Interpretation Description Data Sup porting Code Source(s) Document(s ) Hemoglobin 6.1 % Above high normal [facility] (St A1c/Hemoglobin. [facility] total in Blood [facility], ) ID Date Data Source [id number] 10/13/2018 12:00:00 AM EDT [facility] ([facility], ) Name Value Range Interpretation Description Data Sup porting Code Source(s) Document(s ) Cholesterol 172 Normal (applies [facility] (St [Mass/volume] in mg/dL to non-numeric [facility] Serum or Plasma results) Medical, ) Triglyceride 54 mg/dL Normal (applies [facility] (St [Mass/volume] in to non-numeric [facility] Serum or Plasma results) Medical, ) HDL Cholesterol 67 mg/dL Normal (applies [facility] ( St to non-numeric [facility] results) Medical, ) VLDL Cholesterol 11 mg/dL Normal (applies [facility] (St Alan to non-numeric [facility] results) Medical, ) LDL Cholesterol 94 mg/dL Normal (applies [facility] ( St Calc to non-numeric [facility] results) Medical, ) ID Date Data Source [id number] 10/13/2018 12:00:00 AM EDT [facility] ([facility], ) Name Value Range Interpretation Description Data Sup porting Code Source(s) Document(s ) Glucose 105 Above high [facility] (St [Mass/volume] in mg/dL normal [facility] Urine collected for Medical, unspecified PC) duration Urea nitrogen 8 mg/dL Normal (applies [facility] (St [Mass/volume] in to non-numeric [facility] Serum or Plasma results) Medical, PC) eGFR If NonAfricn 102 Normal (applies [facility] (St Am mL/min/1 to non-numeric [facility] .73 results) Medical, PC) Creatinine 0.59 Below low normal [facility] (St [Interpretation] in mg/dL [facility] Urine Medical, PC) eGFR If Africn Am 118 Normal (applies [facility] (St mL/min/1 to non-numeric [facility] .73 results) Medical, PC) BUN/Creatinine 14 Normal (applies [facility] (S t Ratio to non-numeric [facility] results) Medical, PC) Sodium 143 Normal (applies [facility] (St [Moles/volume] in mmol/L to non-numeric [facility] Serum or Plasma results) Medical, PC) Potassium 4.0 Normal (applies [facility] (St [Mass/volume] in mmol/L to non-numeric [facility] Blood results) Medical, PC) Carbon dioxide, 19 Below low normal [facility] (St total mmol/L [facility] [Moles/volume] in Medical, Serum or Plasma PC) Chloride 107 Above high [facility] (St [Moles/volume] in mmol/L normal [facility] Serum or Plasma Medical, PC) Calcium 9.1 Normal (applies [facility] (St [Moles/volume] in mg/dL to non-numeric [facility] Urine collected for results) Medical, unspecified PC) duration Protein 6.8 g/dL Normal (applies [facility] (St [Mass/volume] in to non-numeric [facility] Serum or Plasma results) Medical, PC) Microalbumin 4.1 g/dL Normal (applies [facility] (St [Mass/time] in to non-numeric [facility] Urine collected for results) Medical, unspecified PC) duration Globulin, Total 2.7 g/dL Normal (applies [facility] ( St to non-numeric [facility] results) Medical, PC) A/G Ratio 1.5 Normal (applies [facility] (St to non-numeric [facility] results) Medical, PC) Bilirubin.total 0.9 Normal (applies [facility] ( St [Mass/volume] in mg/dL to non-numeric [facility] Serum or Plasma results) [facility], ) Alkaline 152 IU/L Above high [facility] (St phosphatase normal [facility] [Enzymatic Medical, activity/volume] in ) Serum, Plasma or Blood Alanine 25 IU/L Normal (applies [facility] (St aminotransferase to non-numeric [facility] [Enzymatic results) Medical, activity/volume] in ) Serum or Plasma Aspartate 27 IU/L Normal (applies [facility] (St aminotransferase to non-numeric [facility] [Enzymatic results) Medical, activity/volume] in ) Serum or Plasma ID Date Data Source [id number] 10/13/2018 12:00:00 AM EDT [facility] ([facility], ) Name Value Range Interpretation Description Data Sup porting Code Source(s) Document(s ) Leukocytes 5.7 Normal (applies [facility] (St [#/volume] in x10E3/uL to non-numeric [facility] Blood by results) [facility], ) Automated count Erythrocytes 4.19 Normal (applies [facility] (St [#/volume] in x10E6/uL to non-numeric [facility] Blood by results) [facility], ) Automated count Hemoglobin 14.1 Normal (applies [facility] (St [Mass/volume] in g/dL to non-numeric [facility] Blood results) [facility], ) MCV 99 fL Above high normal [facility] ([facility], ) Hematocrit 41.6 % Normal (applies [facility] (St [Volume to non-numeric [facility] Fraction] of results) [facility], ) Blood by Automated count MCH 33.7 pg Above high normal [facility] ([facility], ) MCHC 33.9 Normal (applies [facility] (St g/dL to non-numeric [facility] results) [facility]) RDW 15.5 % Above high normal [facility] ([facility], ) Platelets 87 Below lower panic [facility] (St [#/area] in x10E3/uL limits [facility] Blood by [facility], ) Microscopy high power field Neutrophils [#] 67 % Normal (applies [facility] ( St in Body fluid by to non-numeric [facility] Manual count results) [facility], ) Lymphs 10 % Normal (applies [facility] (St to non-numeric [facility]'s results) [facility], ) Monocytes 10 % Normal (applies [facility] (St [#/volume] in to non-numeric [facility] Cord blood results) [facility], ) Eos 10 % Normal (applies [facility] (St to non-numeric [facility] results) [facility], ) Basos 3 % Normal (applies [facility] (St to non-numeric [facility] results) [facility], ) Neutrophils 3.8 Normal (applies MED[facility] (St (Absolute) x10E3/uL to non-numeric [facility] results) [facility], ) Lymphs 0.6 Below low normal [facility] (St (Absolute) x10E3/uL [facility], ) Monocytes(Absolu 0.6 Normal (applies MEDGEN (St te) x10E3/uL to non-numeric [facility] results) [facility]) Eos (Absolute) 0.6 Above high normal MED[facility] (St x10E3/uL [facility], ) Baso (Absolute) 0.2 Normal (applies MEDGEN ( St x10E3/uL to non-numeric [facility] results) [facility], ) Hematology Note: Normal (applies MED[facility] (St Comments: to non-numeric [facility] results) [facility], ) ID Date Data Source [id number] 08/27/2018 10:57:00 AM [facility] Name Value Range Interpretation Description Data Sup porting Code Source(s) Document(s ) Aspartate 33 U/L White aminotransferase [place] [Enzymatic Hospital activity/volume] in Serum or Plasma ID Date Data Source [id number] 08/27/2018 10:57:00 AM [facility] Value Range Interpretation Description Data Sup porting Code Source(s) Document(s ) Alanine 24 U/L White aminotransferase [place] [Enzymatic Hospital activity/volume] in Serum or Plasma ID Date Data Source [id number] 08/27/2018 10:57:00 AM [facility] Name Value Range Interpretation Description Data Sup porting Code Source(s) Document(s ) Alkaline 138 U/L [place] phosphatase Hospital [Enzymatic activity/volume ] in Serum or Plasma ID Date Data Source [id number] 08/27/2018 10:57:00 AM [facility] Name Value Range Interpretation Description Data Sup porting Code Source(s) Document(s ) Bilirubin.t 1.3 mg/dL [facility] [Mass/volum e] in Serum or Plasma ID Date Data Source [id number] 08/[facility] Value Range Interpretation Code Description Data Negin rce(s) Supporting Document(s ) Albumin/Glob 1.4 [facility] [Mass Hospital Ratio] in Serum or Plasma ID Date Data Source [id number] 08/27/2018 10:57:00 AM [facility] Name Value Range Interpretation Description Data Sup porting Code Source(s) Document(s ) Albumin 3.9 g/dL [place] [Mass/volume Hospital ] in Serum or Plasma ID Date Data Source [id number] 08/27/2018 10:57:00 AM [facility] Name Value Range Interpretation Description Data Sup porting Code Source(s) Document(s ) Protein 6.6 g/dL [place] [Mass/volume Hospital ] in Serum or Plasma ID Date Data Source [id number] 08/27/2018 10:57:00 AM [facility] Name Value Range Interpretation Description Data Sup porting Code Source(s) Document(s ) Calcium 8.8 mg/dL [place] [Mass/volume Hospital ] in Serum or Plasma ID Date Data Source [id number] 08/27/2018 10:57:00 AM [facility] UNITS ARE IN ml/min/1.73m2.IF PATIENT IS -NICARAGUAN, MULTIPLY REPORTED RESULT BY 1.21. Name Value Range Interpretation Description Data Sup porting Code Source(s) Document(s ) Glomerular > 60 [place] filtration mL/min Hospital rate/1.73 sq M.predicted [Volume Rate/Area] in Serum or Plasma by Creatinine-bas ed formula (MDRD) ID Date Data Source [id number] 08/27/2018 10:57:00 AM EDT [facility] Name Value Range Interpretation Code Description Data Negin rce(s) Supporting Document(s ) Urea 13.3 [place] nitrogen/Cre Hospital atinine [Mass Ratio] in Serum or Plasma ID Date Data Source [id number] 08/27/2018 10:57:00 AM EDT [facility] Value Range Interpretation Description Data Sup porting Code Source(s) Document(s ) Creatinine 0.6 mg/dL [place] [Mass/volume] Hospital in Serum or Plasma ID Date Data Source [id number] 08/27/2018 10:57:00 AM EDT [facility] Value Range Interpretation Description Data Sup porting Code Source(s) Document(s ) Urea nitrogen 8 mg/dL [place] [Mass/volume] Hospital in Serum or Plasma ID Date Data Source [id number] 08/27/2018 10:57:00 AM EDT [facility] Value Range Interpretation Code Description Data Negin rce(s) Supporting Document(s ) Anion gap in 13 [place] Serum or [facility] Plasma ID Date Data Source [id number] 08/27/2018 10:57:00 AM EDT [facility] Value Range Interpretation Description Data Sup porting Code Source(s) Document(s ) Carbon 25 mmol/L [place] dioxide, Hospital total [Moles/volu me] in Serum or Plasma ID Date Data Source [id number] 08/27/2018 10:57:00 AM EDT [place] [facility] Name Value Range Interpretation Description Data Sup porting Code Source(s) Document(s ) Chloride 109 [place] [Moles/volum mmol/L Hospital e] in Serum or Plasma ID Date Data Source [id number] 08/27/2018 10:57:00 AM [facility] Name Value Range Interpretation Description Data Sup porting Code Source(s) Document(s ) Potassium 4.2 [place] [Moles/volume mmol/L Hospital ] in Serum or Plasma ID Date Data Source [id number] 08/27/2018 10:57:00 AM [facility] Name Value Range Interpretation Description Data Sup porting Code Source(s) Document(s ) Sodium 143 mmol/L [place] [Moles/volu Hospital me] in Serum or Plasma ID Date Data Source [id number] 08/27/2018 10:57:00 AM [facility] NOTE: NEW REFERENCE RANGE, EFFECTIVE 11/18. Name Value Range Interpretation Description Data Sup porting Code Source(s) Document(s ) Glucose 72 mg/dL [place] [Mass/volume Hospital ] in Serum or Plasma ID Date Data Source [id number] 08/27/2018 10:57:00 AM [facility] Name Value Range Interpretation Description Data Sup porting Code Source(s) Document(s ) Differential AUTOMATED [place] cell count [facility] method - Blood ID Date Data Source [id number] 08/27/2018 10:57:00 AM [facility] Name Value Range Interpretation Description Data Sup porting Code Source(s) Document(s ) Basophils 0.03 [place] [#/volume] in 10*3/uL Hospital Blood by Automated count ID Date Data Source [id number] 08/27/2018 10:57:00 AM [facility] Name Value Range Interpretation Description Data Sup porting Code Source(s) Document(s ) Eosinophils 0.14 [place] [#/volume] in 10*3/uL Hospital Blood by Automated count ID Date Data Source [id number] 08/27/2018 10:57:00 AM EDT [facility] Name Value Range Interpretation Description Data Sup porting Code Source(s) Document(s ) Monocytes 0.57 [place] [#/volume] in 10*3/uL Hospital Blood by Automated count ID Date Data Source [id number] 08/27/2018 10:57:00 AM EDT [facility] Name Value Range Interpretation Description Data Sup porting Code Source(s) Document(s ) Lymphocytes 0.44 [place] [#/volume] in 10*3/uL Hospital Blood by Automated count ID Date Data Source [id number] 08/27/2018 10:57:00 AM EDT [facility] Value Range Interpretation Description Data Sup porting Code Source(s) Document(s ) Neutrophils 5.30 [place] [#/volume] in 10*3/uL Hospital Blood by Automated count ID Date Data Source [id number] 08/27/2018 10:57:00 AM EDT [facility] Value Range Interpretation Description Data Sup porting Code Source(s) Document(s ) Basophils/100 0.5 % [place] leukocytes in Hospital Blood by Automated count ID Date Data Source [id number] 08/27/2018 10:57:00 AM EDT [facility] Name Value Range Interpretation Description Data Sup porting Code Source(s) Document(s ) Eosinophils/100 2.2 % [place] leukocytes in Hospital Blood by Automated count ID Date Data Source [id number] 08/27/2018 10:57:00 AM EDT [facility] Value Range Interpretation Description Data Sup porting Code Source(s) Document(s ) Monocytes/100 8.8 % [place] leukocytes in Hospital Blood by Automated count ID Date Data Source [id number] 08/27/2018 [facility] Range Interpretation Description Data Sup porting Code Source(s) Document(s ) Lymphocytes/100 6.8 % [place] leukocytes in Hospital Blood by Automated count ID Date Data Source [id number] 08/27/2018 10:57:00 AM EDT [facility] Name Value Range Interpretation Description Data Sup porting Code Source(s) Document(s ) Neutrophils/10 81.7 % [place] 0 leukocytes Hospital in Blood by Automated count ID Date Data Source [id number] 08/27/2018 10:57:00 AM [facility] CBC performed at:[facility] [address] [address] Name Value Range Interpretation Description Data Sup porting Code Source(s) Document(s ) Platelet mean 9.4 fL [facility] [Entitic volume] in Blood by Automated count ID Date Data Source [id number] 08/27/2018 10:57:00 AM [facility] Name Value Range Interpretation Description Data Sup porting Code Source(s) Document(s ) Platelets 70 [place] [#/volume] in 10*3/uL Hospital Blood by Automated count ID Date Data Source [id number] 08/27/2018 10:57:00 AM [facility] Name Value Range Interpretation Description Data Sup porting Code Source(s) Document(s ) Erythrocyte 17.5 % [place] distribution Hospital width [Ratio] by Automated count ID Date Data Source [id number] 08/27/2018 [facility]:57[facility] Value Range Interpretation Description Data Sup porting Code Source(s) Document(s ) Erythrocyte mean 34.8 [place] corpuscular g/dL Hospital hemoglobin concentration [Mass/volume] by Automated count ID Date Data Source [id number] 08/27/2018 10:57:00 AM [facility] Value Range Interpretation Description Data Sup porting Code Source(s) Document(s ) Erythrocyte 36.5 pg [facility] corpuscular hemoglobin [Entitic mass] by Automated count ID Date Data Source [id number] 08/27/2018 [facility]:57[facility] Interpretation Description Data Sup porting Code Source(s) Document(s ) Erythrocyte 105.0 fL [facility] corpuscular volume [Entitic volume] by Automated count ID Date Data Source [id number] 08/27/2018 10:57:00 AM [facility] Value Range Interpretation Description Data Sup porting Code Source(s) Document(s ) Hematocrit 39.7 % [place] [Volume Hospital Fraction] of Blood by Automated count ID Date Data Source [id number] 08/27/2018 10:57:00 AM [facility] Value Range Interpretation Description Data Sup porting Code Source(s) Document(s ) Hemoglobin 13.8 g/dL [place] [Mass/volume] Hospital in Blood ID Date Data Source [id number] 08/27/2018 10:57:00 AM [facility] Value Range Interpretation Description Data Sup porting Code Source(s) Document(s ) Erythrocytes 3.78 [place] [#/volume] in 10*6/uL Hospital Blood by Automated count ID Date Data Source [id number] 08/27/2018 [facility]:57[facility] Interpretation Description Data Sup porting Code Source(s) Document(s ) Leukocytes 6.5 [place] [#/volume] in 10*3/uL Hospital Blood by Automated count ID Date Data Source [id number] 07/29/2018 11:01:00 AM EDT [facility] Name Value Range Interpretation Description Data Sup porting Code Source(s) Document(s ) Differential AUTOMATED [place] cell count [facility] method - Blood ID Date Data Source [id number] 07/29/2018 11:01:00 AM EDT [facility] Name Value Range Interpretation Description Data Sup porting Code Source(s) Document(s ) Basophils 0.02 [place] [#/volume] in 10*3/uL [facility] Blood by Automated count ID Date Data Source [id number] 07/29/2018 11:01:00 AM EDT [facility] Value Range Interpretation Description Data Sup porting Code Source(s) Document(s ) Eosinophils 0.15 [place] [#/volume] in 10*3/uL [facility] Blood by Automated count ID Date Data Source [id number] 07/29/2018 11:01:00 AM EDT [facility] Name Value Range Interpretation Description Data Sup porting Code Source(s) Document(s ) Monocytes 0.66 [place] [#/volume] in 10*3/uL Hospital Blood by Automated count ID Date Data Source [id number] 07/29/2018 11:01:00 AM EDT [facility] Name Value Range Interpretation Description Data Sup porting Code Source(s) Document(s ) Lymphocytes 0.67 [place] [#/volume] in 10*3/uL Hospital Blood by Automated count ID Date Data Source [id number] 07/29/2018 11:01:00 AM EDT [facility] Name Value Range Interpretation Description Data Sup porting Code Source(s) Document(s ) Neutrophils 3.21 [place] [#/volume] in 10*3/uL Hospital Blood by Automated count ID Date Data Source [id number] 07/29/2018 11:01:00 AM EDT [facility] Name Value Range Interpretation Description Data Sup porting Code Source(s) Document(s ) Basophils/100 0.4 % [place] leukocytes in Hospital Blood by Automated count ID Date Data Source [id number] 07/29/2018 11:01:00 AM EDT [facility] Name Value Range Interpretation Description Data Sup porting Code Source(s) Document(s ) Eosinophils/100 3.2 % [place] leukocytes in Hospital Blood by Automated count ID Date Data Source [id number] 07/29/2018 11:01:00 AM EDT [facility] Name Value Range Interpretation Description Data Sup porting Code Source(s) Document(s ) Monocytes/100 14.0 % [place] leukocytes in Hospital Blood by Automated count ID Date Data Source [id number] 07/[facility] Interpretation Description Data Sup porting Code Source(s) Document(s ) Lymphocytes/10 14.2 % [place] 0 leukocytes Hospital in Blood by Automated count ID Date Data Source [id number] 07/29/2018 [facility] Interpretation Description Data Sup porting Code Source(s) Document(s ) Neutrophils/10 68.2 % [place] 0 leukocytes Hospital in Blood by Automated count ID Date Data Source [id number] 07/29/2018 11:01:00 AM [facility] CBC performed at:[facility] [address] [address] Name Value Range Interpretation Description Data Sup porting Code Source(s) Document(s ) Platelet mean 10.8 fL [place] volume Hospital [Entitic volume] in Blood by Automated count ID Date Data Source [id number] 07/29/2018 11:01:00 AM [facility] Value Range Interpretation Description Data Sup porting Code Source(s) Document(s ) Platelets 63 [place] [#/volume] in 10*3/uL Hospital Blood by Automated count ID Date Data Source [id number] 07/29/2018 11:01:00 AM EDT [facility] Value Range Interpretation Description Data Sup porting Code Source(s) Document(s ) Erythrocyte 15.9 % [place] distribution Hospital width [Ratio] by Automated count ID Date Data Source [id number] 07/29/2018 11:01:00 AM [facility] Value Range Interpretation Description Data Sup porting Code Source(s) Document(s ) Erythrocyte mean 34.2 [place] corpuscular g/dL Hospital hemoglobin concentration [Mass/volume] by Automated count ID Date Data Source [id number] 07/29/2018 11:01:00 AM [facility] Value Range Interpretation Description Data Sup porting Code Source(s) Document(s ) Erythrocyte 35.6 pg [facility] corpuscular hemoglobin [Entitic mass] by Automated count ID Date Data Source [id number] 07/29/2018 11:01:00 AM [facility] Value Range Interpretation Description Data Sup porting Code Source(s) Document(s ) Erythrocyte 104.2 fL [facility] corpuscular volume [Entitic volume] by Automated count ID Date Data Source [id number] 07/29/2018 11:01:00 AM [facility] Value Range Interpretation Description Data Sup porting Code Source(s) Document(s ) Hematocrit 39.8 % [place] [Volume Hospital Fraction] of Blood by Automated count ID Date Data Source [id number] 07/29/2018 11:01:00 AM [facility] Name Value Range Interpretation Description Data Sup porting Code Source(s) Document(s ) Hemoglobin 13.6 g/dL [place] [Mass/volume] Hospital in Blood ID Date Data Source [id number] 07/29/2018 11:01:00 AM EDT [facility] Name Value Range Interpretation Description Data Sup porting Code Source(s) Document(s ) Erythrocytes 3.82 [place] [#/volume] in 10*6/uL Hospital Blood by Automated count ID Date Data Source [id number] 07/29/2018 11:01:00 AM [facility] Value Range Interpretation Description Data Sup porting Code Source(s) Document(s ) Leukocytes 4.7 [place] [#/volume] in 10*3/uL Hospital Blood by Automated count ID Date Data Source [id number] 07/29/2018 11:00:00 AM [facility] Name Value Range Interpretation Description Data Sup porting Code Source(s) Document(s ) Aspartate 92 U/L White aminotransferase [place] [Enzymatic Hospital activity/volume] in Serum or Plasma ID Date Data Source [id number] 07/29/2018 11:00:00 AM [facility] Name Value Range Interpretation Description Data Sup porting Code Source(s) Document(s ) Alanine 52 U/L White aminotransferase [place] [Enzymatic Hospital activity/volume] in Serum or Plasma ID Date Data Source [id number] 07/29/2018 11:00:00 AM [facility] Name Value Range Interpretation Description Data Sup porting Code Source(s) Document(s ) Alkaline 147 U/L [place] phosphatase Hospital [Enzymatic activity/volume ] in Serum or Plasma ID Date Data Source [id number] 07/29/2018 11:00:00 AM EDT [facility] Name Value Range Interpretation Description Data Sup porting Code Source(s) Document(s ) Bilirubin.t 1.1 mg/dL [facility] [Mass/volum e] in Serum or Plasma ID Date Data Source [id number] 07/29/2018 11:00:00 AM EDT [facility] Name Value Range Interpretation Code Description Data Negin rce(s) Supporting Document(s ) [facility] in Serum or Plasma ID Date Data Source [id number] 07/29/2018 11:00:00 AM EDT [facility] Name Value Range Interpretation Description Data Sup porting Code Source(s) Document(s ) Albumin 3.7 g/dL [place] [Mass/volume Hospital ] in Serum or Plasma ID Date Data Source [id number] 07/29/2018 11:00:00 AM EDT [facility] Name Value Range Interpretation Description Data Sup porting Code Source(s) Document(s ) Protein 6.5 g/dL [place] [Mass/volume Hospital ] in Serum or Plasma ID Date Data Source [id number] 07/29/2018 11:00:00 AM EDT [facility] Name Value Range Interpretation Description Data Sup porting Code Source(s) Document(s ) Calcium 8.5 mg/dL [place] [Mass/volume Hospital ] in Serum or Plasma ID Date Data Source [id number] 07/29/2018 11:00:00 AM EDT [facility] Name Value Range Interpretation Code Description Data Negin rce(s) Supporting Document(s ) Urea 15.0 [place] nitrogen/Cre Hospital atinine [Mass Ratio] in Serum or Plasma ID Date Data Source [id number] 07/29/2018 11:00:00 AM EDT [facility] Name Value Range Interpretation Description Data Sup porting Code Source(s) Document(s ) Creatinine 0.6 mg/dL [place] [Mass/volume] Hospital in Serum or Plasma ID Date Data Source [id number] 07/29/2018 11:00:00 AM EDT [facility] Name Value Range Interpretation Description Data Sup porting Code Source(s) Document(s ) Urea nitrogen 9 mg/dL [place] [Mass/volume] Hospital in Serum or Plasma ID Date Data Source [id number] 07/29/2018 11:00:00 AM EDT [facility] Name Value Range Interpretation Code Description Data Negin rce(s) Supporting Document(s ) Anion gap in 13 [place] Serum or [facility] Plasma ID Date Data Source [id number] 07/29/2018 11:00:00 AM EDT [facility] Name Value Range Interpretation Description Data Sup porting Code Source(s) Document(s ) Carbon 23 mmol/L [place] dioxide, Hospital total [Moles/volu me] in Serum or Plasma ID Date Data Source [id number] 07/29/2018 11:00:00 AM EDT [facility] Name Value Range Interpretation Description Data Sup porting Code Source(s) Document(s ) Chloride 107 [place] [Moles/volum mmol/L Hospital e] in Serum or Plasma ID Date Data Source [id number] 07/29/2018 11:00:00 AM EDT [facility] MODERATE HEMOLYSIS Name Value Range Interpretation Description Data Sup porting Code Source(s) Document(s ) Potassium mmol/L [place] [Moles/volume] Hospital in Serum or Plasma ID Date Data Source [id number] 07/29/2018 11:00:00 AM [facility] Name Value Range Interpretation Description Data Sup porting Code Source(s) Document(s ) Sodium 138 mmol/L [place] [Moles/volu Hospital ms] in Serum or Plasma ID Date Data Source [id number] 07/29/2018 11:00:00 AM [facility] NOTE: NEW REFERENCE RANGE, EFFECTIVE 11/18. Name Value Range Interpretation Description Data Sup porting Code Source(s) Document(s ) Glucose 69 mg/dL [place] [Mass/volume Hospital ] in Serum or Plasma ID Date Data Source [id number] 07/02/2018 10:31:00 AM [facility] UNITS ARE IN ml/min/1.73m2.IF PATIENT IS -NICARAGUAN, MULTIPLY REPORTED RESULT BY 1.21. Name Value Range Interpretation Description Data Sup porting Code Source(s) Document(s ) Glomerular > 60 [place] filtration mL/min Hospital rate/1.73 sq M.predicted [Volume Rate/Area] in Serum or Plasma by Creatinine-bas ed formula (MDRD) ID Date Data Source [id number] 06/01/2018 11:30:00 AM [facility] Name Value Range Interpretation Description Data Sup porting Code Source(s) Document(s ) Aspartate 32 U/L 10-48 AST White aminotransferase [place] [Enzymatic Hospital activity/volume] in Serum or Plasma ID Date Data Source [id number] 06/01/2018 11:30:00 AM [facility] Name Value Range Interpretation Description Data Sup porting Code Source(s) Document(s ) Alanine 23 U/L 10-40 ALANINE White aminotransferase TRANSFERASE [place] [Enzymatic Hospital activity/volume] in Serum or Plasma ID Date Data Source [id number] 06/01/2018 11:30:00 AM [facility] Name Value Range Interpretation Description Data Sup porting Code Source(s) Document(s ) Alkaline 151 U/L 41-147 Above high normal ALKALINE [place] phosphatase PHOSPHATASE Hospital [Enzymatic activity/volum e] in Serum or Plasma ID Date Data Source [id number] 06/01/2018 11:30:00 AM [facility] Name Value Range Interpretation Description Data Sup porting Code Source(s) Document(s ) Bilirubin. 1.2 mg/dL 0.3-1.2 TOTAL [place] total BILIRUBIN Hospital [Mass/volu me] in Serum or Plasma ID Date Data Source [id number] 06/01/2018 11:30:00 AM [facility] Name Value Range Interpretation Description Data Sup porting Code Source(s) Document(s ) Albumin/Gl 1.7 1.0-2.1 ALBUMIN/GLOBULI [place] obulin N RATIO Hospital [Mass Ratio] in Serum or Plasma ID Date Data Source [id number] 06/01/2018 11:30:00 AM [facility] Name Value Range Interpretation Description Data Sup porting Code Source(s) Document(s ) Albumin 3.8 g/dL 3.4-4.8 ALBUMIN [place] [Mass/volum Hospital e] in Serum or Plasma ID Date Data Source [id number] 06/01/2018 11:30:00 AM [facility] Name Value Range Interpretation Description Data Sup porting Code Source(s) Document(s ) Protein 6.0 g/dL 5.7-8.2 TOTAL PROTEIN [place] [Mass/volum Hospital e] in Serum or Plasma ID Date Data Source [id number] 06/01/2018 11:30:00 AM [facility] Name Value Range Interpretation Description Data Sup porting Code Source(s) Document(s ) Calcium 8.4 mg/dL 8.3-10.6 CALCIUM [place] [Mass/volum Hospital e] in Serum or Plasma ID Date Data Source [id number] 06/01/2018 11:30:00 AM [facility] UNITS ARE IN ml/min/1.73m2. IF PATIENT IS -[place], MULTIPLY REPORTED RESULT BY 1.21. Name Value Range Interpretation Description Data Sup porting Code Source(s) Document(s ) Glomerular > 60 >=60 GLOMERULAR [place] filtration mL/min FILTRATION Hospital rate/1.73 sq RATE M.predicted [Volume Rate/Area] in Serum or Plasma by Creatinine-bas ed formula (MDRD) ID Date Data Source [id number] 06/01/2018 11:30:00 AM [facility] Name Value Range Interpretation Description Data Sup porting Code Source(s) Document(s ) Urea 17.4 6.0-20.0 BUN/CREATININE [place] nitrogen/C RATIO Hospital reatinine [Mass Ratio] in Serum or Plasma ID Date Data Source [id number] 06/01/2018 11:30:00 AM [facility] Name Value Range Interpretation Description Data Sup porting Code Source(s) Document(s ) Creatinine 0.5 0.9-1.3 Below low normal CREATININE Health system [Mass/volume] mg/dL Hospital in Serum or Plasma ID Date Data Source [id number] 06/01/2018 11:30:00 AM [facility] Name Value Range Interpretation Description Data Sup porting Code Source(s) Document(s ) Urea 8 mg/dL 6-20 BLOOD UREA [place] nitrogen NITROGEN Hospital [Mass/volume ] in Serum or Plasma ID Date Data Source [id number] 06/01/2018 11:30:00 AM [facility] Value Range Interpretation Code Description Data Negin rce(s) Supporting Document(s ) Anion gap in 11 6-18 ANION GAP [place] Serum or [facility] Plasma ID Date Data Source [id number] 06/01/2018 11:30:00 AM EDT [facility] Name Value Range Interpretation Description Data Sup porting Code Source(s) Document(s ) Carbon 24 mmol/L 23-31 CARBON DIOXIDE [place] dioxide, Hospital total [Moles/vol ume] in Serum or Plasma ID Date Data Source [id number] 06/01/2018 11:30:00 AM EDT [place] [facility] Name Value Range Interpretation Description Data Sup porting Code Source(s) Document(s ) Chloride 111 98-107 Above high normal CHLORIDE [place] [Moles/volum mmol/L Hospital e] in Serum or Plasma ID Date Data Source [id number] 06/01/2018 11:30:00 AM EDT [facility] Name Value Range Interpretation Description Data Sup porting Code Source(s) Document(s ) Potassium 3.5 3.5-5.3 POTASSIUM [place] [Moles/volume mmol/L Hospital ] in Serum or Plasma ID Date Data Source [id number] 06/01/2018 11:30:00 AM EDT [facility] Name Value Range Interpretation Description Data Sup porting Code Source(s) Document(s ) Sodium 142 136-145 SODIUM [place] [Moles/vol mmol/L Hospital ume] in Serum or Plasma ID Date Data Source [id number] 06/01/2018 11:30:00 AM EDT [facility] Name Value Range Interpretation Description Data Sup porting Code Source(s) Document(s ) Glucose 65 mg/dL 74-106 Below low normal GLUCOSE [place] [Mass/volum Hospital e] in Serum or Plasma ID Date Data Source [id number] 06/01/2018 11:20:00 AM EDT [facility] Name Value Range Interpretation Description Data Sup porting Code Source(s) Document(s ) Differential AUTOMATED DIFF TYPE [place] cell count Hospital method - Blood ID Date Data Source [id number] 06/01/2018 11:20:00 AM EDT [facility] Name Value Range Interpretation Description Data Sup porting Code Source(s) Document(s ) Basophils 0.05 0.0-0.1 BASOPHILS [place] [#/volume] 10*3/uL (AUTO DIFF #) Hospital in Blood by Automated count ID Date Data Source [id number] 06/01/2018 11:20:00 AM EDT [facility] Name Value Range Interpretation Description Data Sup porting Code Source(s) Document(s ) Eosinophils 0.15 0.0-0.6 EOSINOPHILS [facility] [#/volume] in 10*3/uL (AUTO DIFF #) [place] Blood by Hospital Automated count ID Date Data Source [id number] 06/01/2018 11:20:00 AM [facility] Value Range Interpretation Description Data Sup porting Code Source(s) Document(s ) Monocytes 1.13 0.0-1.2 MONOCYTES [place] [#/volume] 10*3/uL (AUTO DIFF #) Hospital in Blood by Automated count ID Date Data Source [id number] 06/01/2018 11:20:00 AM [facility] Value Range Interpretation Description Data Sup porting Code Source(s) Document(s ) Lymphocytes 1.57 1.2-3.5 LYMPHOCYTES [facility] [#/volume] in 10*3/uL (AUTO DIFF #) [place] Blood by Hospital Automated count ID Date Data Source [id number] 06/01/[facility] Value Range Interpretation Description Data Sup porting Code Source(s) Document(s ) Neutrophils 2.34 1.5-6.6 NEUTROPHILS [facility] [#/volume] in 10*3/uL (AUTO DIFF #) [place] Blood by Hospital Automated count ID Date Data Source [id number] 06/01/2018 11:20:00 AM [facility] Name Value Range Interpretation Description Data Sup porting Code Source(s) Document(s ) Basophils/100 1.0 % 0-1.0 BASOPHILS (AUTO [place] [facility] [facility] leukocytes in DIFF %) Hospital Blood by Automated count ID Date Data Source [id number] 06/01/2018 11:20:00 AM [facility] Name Value Range Interpretation Description Data Sup porting Code Source(s) Document(s ) Eosinophils/10 2.9 % 0-6.0 EOSINOPHILS [place] 0 leukocytes (AUTO DIFF %) Hospital in Blood by Automated count ID Date Data Source [id number] 06/01/2018 11:20:00 AM [facility] Name Value Range Interpretation Description Data Sup porting Code Source(s) Document(s ) Monocytes/100 21.6 % 4.0-12.0 Above high normal MONOCYTES [facility] leukocytes in (AUTO DIFF %) Hospital Blood by Automated count ID Date Data Source [id number] 06/01/2018 11:20:00 AM [facility] Name Value Range Interpretation Description Data Sup porting Code Source(s) Document(s ) Lymphocytes/1 30.0 % 20.0-48. LYMPHOCYTES [place] 00 leukocytes 0 (AUTO DIFF %) Hospital in Blood by Automated count ID Date Data Source [id number] 06/01/2018 11:20:00 AM [facility] Name Value Range Interpretation Description Data Sup porting Code Source(s) Document(s ) Neutrophils/1 44.5 % 40.0-75. NEUTROPHILS [place] 00 leukocytes 0 (AUTO DIFF %) Hospital in Blood by Automated count ID Date Data Source [id number] 06/01/2018 11:20:00 AM [facility] CBC performed at: [facility] [place] [address] [place] [address] Name Value Range Interpretation Description Data Sup porting Code Source(s) Document(s ) Platelet mean 9.7 fL 9.6-12.8 MEAN PLATELET [place] volume VOLUME Hospital [Entitic volume] in Blood by Automated count ID Date Data Source [id number] 06/01/2018 11:20:00 AM [facility] Name Value Range Interpretation Description Data Sup porting Code Source(s) Document(s ) Platelets 80 150-400 Below low normal PLATELET COUNT [facility] [#/volume] 10*3/uL Hospital in Blood by Automated count ID Date Data Source [id number] 06/01/2018 11:20:00 AM [facility] Name Value Range Interpretation Description Data Sup porting Code Source(s) Document(s ) Erythrocyte 19.6 % 11.5-14. Above high normal RED CELL [facility] distribution 5 DISTRIBUTION [place] width [Ratio] WIDTH Hospital by Automated count ID Date Data Source [id number] 06/01/2018 11:20:00 AM [facility] Name Value Range Interpretation Description Data Sup porting Code Source(s) Document(s ) Erythrocyte mean 35.9 31.0-36. MEAN [facility] corpuscular g/dL 0 CORPUSCULAR [place] hemoglobin HGB CONCEN Hospital concentration [Mass/volume] by Automated count ID Date Data Source [id number] 06/01/2018 11:20:00 AM [facility] Name Value Range Interpretation Description Data Sup porting Code Source(s) Document(s ) Erythrocyte 37.8 pg 27.0-34. Above high normal MEAN [facility] mean 0 CORPUSCULAR [place] corpuscular HEMOGLOBIN [facility] hemoglobin [Entitic mass] by Automated count ID Date Data Source [id number] 06/01/2018 11:20:00 AM [facility] Name Value Range Interpretation Description Data Sup porting Code Source(s) Document(s ) Erythrocyte 105.2 fL 80.0-96. Above high normal MEAN [facility] mean 0 CORPUSCULAR [place] corpuscular VOLUME Hospital volume [Entitic volume] by Automated count ID Date Data Source [id number] 06/01/2018 11:20:00 AM EDT [facility] Name Value Range Interpretation Description Data Sup porting Code Source(s) Document(s ) Hematocrit 34.5 % 42.0-50.0 Below low normal HEMATOCRIT [place] [Volume Hospital Fraction] of Blood by Automated count ID Date Data Source [id number] 06/01/2018 11:20:00 AM [facility] Name Value Range Interpretation Description Data Sup porting Code Source(s) Document(s ) Hemoglobin 12.4 13.6-17. Below low normal HEMOGLOBIN [place] [Mass/volume] g/dL 0 Hospital in Blood ID Date Data Source [id number] 06/01/2018 11:20:00 AM EDT [facility] Name Value Range Interpretation Description Data Sup porting Code Source(s) Document(s ) Erythrocytes 3.28 4.50-5.9 Below low normal RED BLOOD [facility] [#/volume] in 10*6/uL 0 CELL COUNT [place] Blood by [facility] Automated count ID Date Data Source [id number] 06/01/2018 11:20:00 AM EDT [facility] Name Value Range Interpretation Description Data Sup porting Code Source(s) Document(s ) Leukocytes 5.2 4.0-10.0 WHITE BLOOD [place] [#/volume] in 10*3/uL CELL COUNT [facility] Blood by Automated count ID Date Data Source [id number] 11/26/2017 12:00:00 AM EDT [facility] ([facility], ) Name Value Range Interpretation Code Description Data Negin rce(s) Supporting Document(s ) TSH 2.770 Normal (applies to [facility] (St uIU/mL non-numeric results) [facility], ) ID Date Data Source [id number] 11/26/2017 12:00:00 AM EDT [facility] ([facility] Name Value Range Interpretation Description Data Sup porting Code Source(s) Document(s ) Vitamin D, 23.3 Below low normal [facility] (St 25-Hydroxy ng/mL [facility], ) ID Date Data Source [id number] 11/26/2017 12:00:00 AM EDT [facility], ) Name Value Range Interpretation Description Data Sup porting Code Source(s) Document(s ) Hemoglobin 5.7 % Above high normal [facility] (St A1c/Hemoglobin. [facility] total in Blood Medical, ) ID Date Data Source [id number] 11/26/2017 12:00:00 AM EDT [facility], ) Name Value Range Interpretation Description Data Sup porting Code Source(s) Document(s ) PSA, Free 0.41 Normal (applies to [facility] (St ng/mL non-numeric [facility] results) Medical, ) Prostate 1.3 ng/mL Normal (applies to [facility] (St Specific Ag, non-numeric [facility] Serum results) Medical, ) % Free PSA 31.5 % Normal (applies to [facility] (St non-numeric [facility] results) Medical, ) ID Date Data Source [id number] 11/26/2017 12:00:00 AM EDT [facility], ) Name Value Range Interpretation Description Data Sup porting Code Source(s) Document(s ) Triglyceride 96 mg/dL Normal (applies [facility] (St [Mass/volume] in to non-numeric [facility] Serum or Plasma results) Medical, ) Cholesterol 169 Normal (applies [facility] (St [Mass/volume] in mg/dL to non-numeric [facility] Serum or Plasma results) Medical, ) HDL Cholesterol 63 mg/dL Normal (applies [facility] ( St to non-numeric [facility] results) Medical, ) VLDL Cholesterol 19 mg/dL Normal (applies [facility] (St Alan to non-numeric [facility] results) Medical, ) LDL Cholesterol 87 mg/dL Normal (applies [facility] ( St Calc to non-numeric [facility] results) Medical, ) ID Date Data Source [id number] 11/26/2017 12:00:00 AM EDT [facility] ([facility] Name Value Range Interpretation Description Data Sup porting Code Source(s) Document(s ) Glucose 93 mg/dL Normal (applies [facility] (St [Mass/volume] in to non-numeric [facility] Urine collected for results) Medical, unspecified PC) duration Creatinine 0.71 Below low normal [facility] (St [Interpretation] in mg/dL [facility] Urine [facility], ) Urea nitrogen 11 mg/dL Normal (applies [facility] (St [Mass/volume] in to non-numeric [facility] Serum or Plasma results) Medical, PC) eGFR If NonAfricn 95 Normal (applies [facility] (St Am mL/min/1 to non-numeric [facility] .73 results) Medical, PC) eGFR If Africn Am 110 Normal (applies [facility] (St mL/min/1 to non-numeric [facility] .73 results) Medical, PC) BUN/Creatinine 15 Normal (applies [facility] (S t Ratio to non-numeric [facility] results) Medical, PC) Sodium 142 Normal (applies [facility] (St [Moles/volume] in mmol/L to non-numeric [facility] Serum or Plasma results) Medical, PC) Potassium 4.1 Normal (applies [facility] (St [Mass/volume] in mmol/L to non-numeric [facility] Blood results) Medical, PC) Chloride 103 Normal (applies [facility] (St [Moles/volume] in mmol/L to non-numeric [facility] Serum or Plasma results) Medical, PC) Protein 6.8 g/dL Normal (applies [facility] (St [Mass/volume] in to non-numeric [facility] Serum or Plasma results) Medical, PC) Calcium 9.2 Normal (applies [facility] (St [Moles/volume] in mg/dL to non-numeric [facility] Urine collected for results) Medical, unspecified PC) duration Microalbumin 4.3 g/dL Normal (applies [facility] (St [Mass/time] in to non-numeric [facility] Urine collected for results) Medical, unspecified PC) duration Globulin, Total 2.5 g/dL Normal (applies [facility] ( St to non-numeric [facility] results) Medical, PC) Bilirubin.total 0.9 Normal (applies [facility] ( St [Mass/volume] in mg/dL to non-numeric [facility] Serum or Plasma results) Medical, ) A/G Ratio 1.7 Normal (applies [facility] (St to non-numeric [facility] results) Medical, ) Alkaline 105 IU/L Normal (applies [facility] (St phosphatase to non-numeric [facility] [Enzymatic results) Medical, activity/volume] in ) Serum, Plasma or Blood Aspartate 16 IU/L Normal (applies [facility] (St aminotransferase to non-numeric [facility] [Enzymatic results) Medical, activity/volume] in ) Serum or Plasma ID Date Data Source [id number] 11/26/2017 12:00:00 AM EDT [facility] ([facility], ) Name Value Range Interpretation Description Data Sup porting Code Source(s) Document(s ) Erythrocytes 4.59 Normal (applies [facility] (St [#/volume] in x10E6/uL to non-numeric [facility] Blood by results) Medical, ) Automated count Leukocytes 7.2 Normal (applies [facility] (St [#/volume] in x10E3/uL to non-numeric [facility] Blood by results) Medical, ) Automated count Hematocrit 42.2 % Normal (applies [facility] (St [Volume to non-numeric [facility] Fraction] of results) Medical, ) Blood by Automated count Hemoglobin 14.8 Normal (applies [facility] (St [Mass/volume] in g/dL to non-numeric [facility] Blood results) [facility], ) MCV 92 fL Normal (applies [facility] (St to non-numeric [facility] results) Medical, ) MCH 32.2 pg Normal (applies [facility] (St to non-numeric [facility] results) Medical, ) MCHC 35.1 Normal (applies [facility] (St g/dL to non-numeric [facility] results) Medical, ) RDW 13.7 % Normal (applies [facility] (St to non-numeric [facility] results) Medical, ) Neutrophils [#] 69 % Normal (applies [facility] ( St in Body fluid by to non-numeric [facility] Manual count results) [facility], ) Platelets 176 Normal (applies [facility] (St [#/area] in x10E3/uL to non-numeric [facility] Blood by results) Medical, ) Microscopy high power field Monocytes 4 % Normal (applies [facility] (St [#/volume] in to non-numeric [facility] Cord blood results) Medical, ) Lymphs 22 % Normal (applies [facility] (St to non-numeric [facility] results) Medical, ) Basos 0 % Normal (applies [facility] (St to non-numeric [facility] results) [facility], ) Eos 5 % Normal (applies [facility] (St to non-numeric [facility] results) [facility], ) Neutrophils 4.9 Normal (applies [facility] (St (Absolute) x10E3/uL to non-numeric [facility] results) Medical, ) Lymphs 1.6 Normal (applies [facility] (St (Absolute) x10E3/uL to non-numeric [facility] results) Medical, ) Monocytes(Absolu 0.3 Normal (applies [facility] (St te) x10E3/uL to non-numeric [facility] results) [facility], ) Eos (Absolute) 0.3 Normal (applies [facility] (S t x10E3/uL to non-numeric [facility] results) [facility], ) Baso (Absolute) 0.0 Normal (applies [facility] ( St x10E3/uL to non-numeric [facility] results) [facility], ) Immature Grans 0.0 Normal (applies [facility] (S t (Abs) x10E3/uL to non-numeric [facility] results) [facility], ) Immature 0 % Normal (applies [facility] (St Granulocytes to non-numeric [facility] results) [facility], ) ID Date Data Source [id number] 06/20/2017 12:00:00 AM EDT [facility], ) Name Value Range Interpretation Description Data Sup porting Code Source(s) Document(s ) Hemoglobin 5.7 % Above high normal [facility] (St A1c/Hemoglobin. [facility] total in Blood [facility], ) ID Date Data Source [id number] 06/20/2017 12:00:00 AM EDT [facility], ) Name Value Range Interpretation Description Data Sup porting Code Source(s) Document(s ) Cholesterol 158 Normal (applies [facility] (St [Mass/volume] in mg/dL to non-numeric [facility] Serum or Plasma results) [facility], ) Triglyceride 124 Normal (applies [facility] (St [Mass/volume] in mg/dL to non-numeric [facility] Serum or Plasma results) Medical, PC) HDL Cholesterol 58 mg/dL Normal (applies [facility] ( St to non-numeric [facility] results) Medical, PC) VLDL Cholesterol 25 mg/dL Normal (applies [facility] (St Alan to non-numeric [facility] results) Medical, PC) LDL Cholesterol 75 mg/dL Normal (applies [facility] ( St Calc to non-numeric [facility] results) [facility], PC) ID Date Data Source [id number] 06/20/2017 12:00:00 AM EDT [facility] ([facility] Name Value Range Interpretation Description Data Sup porting Code Source(s) Document(s ) Glucose 88 mg/dL Normal (applies [facility] (St [Mass/volume] in to non-numeric [facility] Urine collected for results) Medical, unspecified PC) duration Urea nitrogen 11 mg/dL Normal (applies [facility] (St [Mass/volume] in to non-numeric [facility] Serum or Plasma results) Medical, PC) Creatinine 0.69 Below low normal [facility] (St [Interpretation] in mg/dL [facility] Urine [facility], PC) eGFR If NonAfricn 97 Normal (applies [facility] (St Am mL/min/1 to non-numeric [facility] .73 results) Medical, PC) BUN/Creatinine 16 Normal (applies [facility] (S t Ratio to non-numeric [facility] results) Medical, PC) eGFR If Africn Am 112 Normal (applies [facility] (St mL/min/1 to non-numeric [facility] .73 results) Medical, PC) Sodium 144 Normal (applies [facility] (St [Moles/volume] in mmol/L to non-numeric [facility] Serum or Plasma results) Medical, PC) Potassium 4.1 Normal (applies [facility] (St [Mass/volume] in mmol/L to non-numeric [facility] Blood results) Medical, PC) Chloride 102 Normal (applies [facility] (St [Moles/volume] in mmol/L to non-numeric [facility] Serum or Plasma results) Medical, PC) Carbon dioxide, 24 Normal (applies [facility] ( St total mmol/L to non-numeric [facility] [Moles/volume] in results) Medical, Serum or Plasma PC) Protein 6.7 g/dL Normal (applies [facility] (St [Mass/volume] in to non-numeric [facility] Serum or Plasma results) Medical, PC) Calcium 9.3 Normal (applies [facility] (St [Moles/volume] in mg/dL to non-numeric [facility] Urine collected for results) Medical, unspecified PC) duration Globulin, Total 2.6 g/dL Normal (applies [facility] ( St to non-numeric [facility] results) Medical, ) Microalbumin 4.1 g/dL Normal (applies [facility] (St [Mass/time] in to non-numeric [facility] Urine collected for results) Medical, unspecified PC) duration A/G Ratio 1.6 Normal (applies [facility] (St to non-numeric [facility] results) Medical, ) Bilirubin.total 0.8 Normal (applies [facility] ( St [Mass/volume] in mg/dL to non-numeric [facility] Serum or Plasma results) Medical, ) Alkaline 97 IU/L Normal (applies [facility] (St phosphatase to non-numeric [facility] [Enzymatic results) Medical, activity/volume] in PC) Serum, Plasma or Blood Aspartate 14 IU/L Normal (applies [facility] (St aminotransferase to non-numeric [facility] [Enzymatic results) Medical, activity/volume] in PC) Serum or Plasma Alanine 18 IU/L Normal (applies [facility] (St aminotransferase to non-numeric [facility] [Enzymatic results) Medical, activity/volume] in PC) Serum or Plasma ID Date Data Source [id number] 10/29/2016 12:00:00 AM EDT [facility] ([facility], ) Name Value Range Interpretation Description Data Sup porting Code Source(s) Document(s ) Hemoglobin 5.9 % Above high normal [facility] (St A1c/Hemoglobin. [facility] total in Blood [facility], ) ID Date Data Source [id number] 10/29/2016 12:00:00 AM EDT [facility] ([facility], ) Name Value Range Interpretation Description Data Sup porting Code Source(s) Document(s ) PSA, Free 0.31 Normal (applies to [facility] (St ng/mL non-numeric [facility] results) Medical, ) Prostate 1.1 ng/mL Normal (applies to [facility] (St Specific Ag, non-numeric [facility] Serum results) Medical, ) % Free PSA 28.2 % Normal (applies to [facility] (St non-numeric [facility] results) Medical, ) ID Date Data Source [id number] 10/29/2016 12:00:00 AM EDT [facility] ([facility], ) Name Value Range Interpretation Description Data Sup porting Code Source(s) Document(s ) Triglyceride 134 Normal (applies [facility] (St [Mass/volume] in mg/dL to non-numeric [facility] Serum or Plasma results) Medical, ) Cholesterol 159 Normal (applies [facility] (St [Mass/volume] in mg/dL to non-numeric [facility] Serum or Plasma results) Medical, ) VLDL Cholesterol 27 mg/dL Normal (applies [facility] (St Alan to non-numeric [facility] results) Medical, ) HDL Cholesterol 53 mg/dL Normal (applies [facility] ( St to non-numeric [facility] results) Medical, ) LDL Cholesterol 79 mg/dL Normal (applies [facility] ( St Calc to non-numeric [facility] results) Medical, ) ID Date Data Source [id number] 10/29/2016 12:00:00 AM EDT [facility] ([facility], ) Name Value Range Interpretation Description Data Sup porting Code Source(s) Document(s ) Glucose, Serum 93 mg/dL Normal (applies [facility] (S t to non-numeric [facility] results) Medical, ) Urea nitrogen 11 mg/dL Normal (applies [facility] (St [Mass/volume] in to non-numeric [facility] Serum or Plasma results) Medical, ) Creatinine, Serum 0.69 Below low normal [facility] N (St mg/dL [facility], ) eGFR If Africn Am 112 Normal (applies [facility] (St mL/min/1 to non-numeric [facility] .73 results) Medical, ) eGFR If NonAfricn 97 Normal (applies [facility] (St Am mL/min/1 to non-numeric [facility] .73 results) Medical, ) BUN/Creatinine 16 Normal (applies [facility] (S t Ratio to non-numeric [facility] results) Medical, ) Sodium 146 Above high [facility] (St [Moles/volume] in mmol/L normal [facility] Serum or Plasma Medical, ) Potassium, Serum 4.2 Normal (applies [facility] (St mmol/L to non-numeric [facility] results) Medical, ) Chloride 103 Normal (applies [facility] (St [Moles/volume] in mmol/L to non-numeric [facility] Serum or Plasma results) Medical, ) Carbon dioxide, 25 Normal (applies [facility] ( St total mmol/L to non-numeric [facility] [Moles/volume] in results) Medical, Serum or Plasma PC) Protein 7.0 g/dL Normal (applies [facility] (St [Mass/volume] in to non-numeric [facility] Serum or Plasma results) Medical, ) Calcium, Serum 9.3 Normal (applies [facility] (S t mg/dL to non-numeric [facility] results) Medical, PC) Globulin, Total 2.6 g/dL Normal (applies [facility] ( St to non-numeric [facility] results) Medical, ) Albumin, Serum 4.4 g/dL Normal (applies [facility] (S t to non-numeric [facility] results) Medical, PC) A/G Ratio 1.7 Normal (applies [facility] (St to non-numeric [facility] results) Medical, PC) Bilirubin.total 0.8 Normal (applies [facility] ( St [Mass/volume] in mg/dL to non-numeric [facility] Serum or Plasma results) Medical, PC) Alkaline 97 IU/L Normal (applies [facility] (St Phosphatase, S to non-numeric [facility] results) Medical, PC) Aspartate 18 IU/L Normal (applies [facility] (St aminotransferase to non-numeric [facility] [Enzymatic results) Medical, activity/volume] in PC) Serum or Plasma Alanine 16 IU/L Normal (applies [facility] (St aminotransferase to non-numeric [facility] [Enzymatic results) Medical, activity/volume] in PC) Serum or Plasma Procedure Social History Code Duration Value Status Description Data Source(s ) Smoking 11/29/2019 completed nonsmoker [facility] (St 12:00:00 AM EDT nonsmoker former former alcohol , [facility], alcohol, former former alcohol ) 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 Smoking 11/29/2019 Former smoker completed Former smoker [facility] ( St 12:00:00 AM EDT [facility]ivani, ) Smoking 03/22/2019 Patient is a completed Patient is a [facility] 12:00:00 AM EST former smoker former smoker ([facility] ) ETOH Use Has consumed completed Has consumed [facility] alcohol in the alcohol in the (Diges tive past past [facility] ) Smoking Unknown if ever completed Unknown if ever [facility] [place] [facility] Smoking Unknown if ever completed Unknown if ever [facility] [place] [facility] Smoking Unknown if ever completed Unknown if ever [facility] [place] [facility] Smoking Unknown if ever completed Unknown if ever [facility] [place] [facility] Vital Signs ID Date Data Source UNK Name Value Range Interpretation Code Description Data Source(s) Inhaled oxygen 99 % 99 % [facility] ([facility]) Body mass index 29.8 kg/m2 29.8 kg/m2 [facility] (S t (BMI) [Ratio] [facility]) Diastolic blood 84 mm[Hg] 84 mm[Hg] [facility] ([facility]) Systolic blood 142 mm[Hg] 142 mm[Hg] [facility] ([facility]) Body weight 196 lb 196 [facility] Body height 68 in 68 in [facility] Heart rate 82 /min 82 /min [facility] Diastolic blood 70 mm[Hg] 70 mm[Hg] [facility] ins pressure Hospital Systolic blood 128 mm[Hg] 128 mm[Hg] [facility] ns pressure Hospital Respiratory rate 20 /min 20 /min [facility] Heart rate 79 /min 79 /min [facility] Body temperature [address] [facility] Body temperature 98.0 [degF] 98.0 [degF] [facility] Body mass index 27.1 kg/m2 27.1 kg/m2 [facility] (BMI) [Ratio] Hospital Body weight 194 [lb_av] 194 [lb_av] [facility] Heart rate 86 /min 86 /min [facility] ([facility]) Inhaled oxygen 97 % 97 % [facility] ([facility]) Body mass index 29.5 kg/m2 29.5 kg/m2 [facility] (S t (BMI) [Ratio] [facility]) Diastolic blood 90 mm[Hg] 90 mm[Hg] [facility] (S t [facility]) Systolic blood 160 mm[Hg] 160 mm[Hg] [facility] ([facility]) Body weight 194 lb 194 lb [facility] ([facility]) Body height 68 in 68 in [facility] ([facility]) Body mass index 27.1 kg/m2 27.1 kg/m2 [facility] (BMI) [Ratio] ([facility]) Body weight 194.00 194.00 [lb_av] [facility] [lb_av] ([facility]) Body height 71 [in_i] 71 [in_i] [facility] ([facility]) 5'11" Respiratory rate 13 /min 13 /min [facility] ( [facility]) Heart rate 88 /min 88 /min [facility] ([facility]) Diastolic blood pressure 68 mm[Hg] 68 mm[Hg] [facility] ([facility]) Systolic blood pressure 118 mm[Hg] 118 mm[Hg] Alphonso JAYLEN ([facility]) Respiratory rate 14 /min 14 /min [facility] ( [facility]) Inhaled oxygen concentration 98 % 98 % [facility] ([facility]) Body mass index (BMI) [Ratio] 29.8 kg/m2 29.8 k g/m2 [facility] ([facility]) Diastolic blood pressure 86 mm[Hg] 86 mm[Hg] [facility] ([facility]) Systolic blood pressure 132 mm[Hg] 132 mm[Hg] Alphonso REEMA ([facility]) Body weight 196 lb 196 lb [facility] ([facility]) Body height 68 in 68 in [facility] ([facility]) Heart rate 80 /min 80 /min [facility] ([facility]) Heart rate 84 /min 84 /min [facility] ([facility]) Inhaled oxygen concentration 98 % 98 % [facility] ([facility]) Body mass index (BMI) [Ratio] 29.3 kg/m2 29.3 k g/m2 [facility] ([facility]) Diastolic blood pressure 72 mm[Hg] 72 mm[Hg] [facility] ([facility]) Systolic blood pressure 138 mm[Hg] 138 mm[Hg] [facility] ([facility]) Body weight 193 lb 193 lb [facility] ([facility]) Body height 68 in 68 in [facility] ([facility]) Heart rate 76 /min 76 /min [facility] ([facility]) Respiratory rate 15 /min 15 /min [facility] ( [facility]) Inhaled oxygen concentration 95 % 95 % [facility] ([facility]) Diastolic blood pressure 76 mm[Hg] 76 mm[Hg] [facility] ([facility]) Systolic blood pressure 120 mm[Hg] 120 mm[Hg] [facility] ([facility]) Body height 68 in 68 in [facility] ([facility]) Heart rate 92 /min 92 /min [facility] ([facility]) Inhaled oxygen concentration 98 % 98 % [facility] ([facility]) Body mass index (BMI) [Ratio] 28.1 kg/m2 28.1 k g/m2 [facility] ([facility]) Diastolic blood pressure 86 mm[Hg] 86 mm[Hg] [facility] ([facility]) Systolic blood pressure 150 mm[Hg] 150 mm[Hg] [facility] ([facility]) Body weight 185 lb 185 lb [facility] ([facility]) Body height 68 in 68 in [facility] ([facility]) Heart rate 93 /min 93 /min [facility] ([facility]) Inhaled oxygen concentration 96 % 96 % [facility] ([facility]) Body mass index (BMI) [Ratio] 28.1 kg/m2 28.1 k g/m2 [facility] ([facility]) Diastolic blood pressure 66 mm[Hg] 66 mm[Hg] [facility] ([facility]) Systolic blood pressure 134 mm[Hg] 134 mm[Hg] [facility] ([facility]) Body weight 185 lb 185 lb [facility] ([facility]) Body height 68 in 68 in [facility] ([facility]) Heart rate 94 /min 94 /min [facility] ([facility]) Respiratory rate 14 /min 14 /min [facility] ( [facility]) Body temperature 98.5 F 98.5 F [facility] ( [facility]) Body mass index (BMI) [Ratio] 27.6 kg/m2 27.6 k g/m2 [facility] ([facility]) Diastolic blood pressure 72 mm[Hg] 72 mm[Hg] [facility] ([facility]) Systolic blood pressure 160 mm[Hg] 160 mm[Hg] [facility] ([facility]) Body weight 184 lb 184 lb [facility] ([facility]) Body height 68.5 in 68.5 in [facility] ([facility]) Heart rate 93 /min 93 /min [facility] ([facility]) Inhaled oxygen concentration 95 % 95 % [facility] ([facility]) Body mass index (BMI) [Ratio] 26.8 kg/m2 26.8 k g/m2 [facility] ([facility]) Diastolic blood pressure 82 mm[Hg] 82 mm[Hg] [facility] ([facility]) Systolic blood pressure 140 mm[Hg] 140 mm[Hg] [facility] ([facility]) Body weight 176 lb 176 lb [facility] ([facility]) Body height 68 in 68 in [facility] ([facility]) Heart rate 99 /min 99 /min [facility] ([facility]) Inhaled oxygen concentration 95 % 95 % [facility] ([facility]) Body mass index (BMI) [Ratio] 26.8 kg/m2 26.8 k g/m2 [facility] ([facility]) Diastolic blood pressure 80 mm[Hg] 80 mm[Hg] [facility] ([facility]) Systolic blood pressure 148 mm[Hg] 148 mm[Hg] [facility] ([facility]) Body weight 176 lb 176 lb [facility] ([facility]) Body height 68 in 68 in [facility] ([facility]) Heart rate 90 /min 90 /min [facility] ([facility], ) Inhaled oxygen concentration 95 % 95 % [facility] ([facility]) Body mass index (BMI) [Ratio] 26.8 kg/m2 26.8 k g/m2 [facility] ([facility]) Diastolic blood pressure 82 mm[Hg] 82 mm[Hg] [facility] ([facility]) Systolic blood pressure 158 mm[Hg] 158 mm[Hg] [facility]) Body weight 176 lb 176 lb [facility] ([facility]) Body height 68 in 68 in [facility] ([facility]) Heart rate 97 /min 97 /min [facility] ([facility]) Inhaled oxygen concentration 95 % 95 % [facility] ([facility]) Body mass index (BMI) [Ratio] 26.9 kg/m2 26.9 k g/m2 [facility] ([facility]) Diastolic blood pressure 80 mm[Hg] 80 mm[Hg] [facility] ([facility]) Systolic blood pressure 130 mm[Hg] 130 mm[Hg] Alphonso [facility] ([facility]) Body weight 177 lb 177 lb [facility] ([facility]) Body height 68 in 68 in [facility] ([facility] [place] ) Heart rate 102 /min 102 /min [facility] ([facility]) Respiratory rate 18 /min 18 /min [facility] ( [facility]) Body mass index (BMI) [Ratio] 27.4 kg/m2 27.4 k g/m2 [facility] ([facility]) Diastolic blood pressure 88 mm[Hg] 88 mm[Hg] [facility] ([facility]) Systolic blood pressure 140 mm[Hg] 140 mm[Hg] M [facility] ([facility]) Body weight 180 lb 180 lb [facility] ([facility]) Body height 68 in 68 in [facility] ([facility]) Heart rate 100 /min 100 /min [facility] ([facility]) Respiratory rate 15 /min 15 /min [facility] ( [facility]) Inhaled oxygen concentration 97 % 97 % [facility] ([facility]) Body mass index (BMI) [Ratio] 26 kg/m2 26 kg/ m2 [facility] ([facility]) Diastolic blood pressure 82 mm[Hg] 82 mm[Hg] [facility] ([facility]) Systolic blood pressure 120 mm[Hg] 120 mm[Hg] Alphonso [facility] ([facility]) Body weight 181 lb 181 lb [facility] ([facility]) Body height 70 in 70 in [facility] ([facility]) Heart rate 100 /min 100 /min [facility] ([facility]) Respiratory rate 15 /min 15 /min [facility] ( [facility]) Inhaled oxygen concentration 97 % 97 % [facility] ([facility]) Body mass index (BMI) [Ratio] 25.8 kg/m2 25.8 k g/m2 [facility] ([facility]) Diastolic blood pressure 82 mm[Hg] 82 mm[Hg] [facility] ([facility]) Systolic blood pressure 142 mm[Hg] 142 mm[Hg] [facility] ([facility]) Body weight 180 lb 180 lb [facility] ([facility]) Body height 70 in 70 in [facility] ([facility]) Heart rate 82 /min 82 /min [facility] ([facility]) Respiratory rate 15 /min 15 /min [facility] ( [facility]) Inhaled oxygen concentration 98 % 98 % [facility] ([facility]) Body mass index (BMI) [Ratio] 26.7 kg/m2 26.7 k g/m2 [facility] ([facility]) Diastolic blood pressure 90 mm[Hg] 90 mm[Hg] [facility] ([facility]) Systolic blood pressure 145 mm[Hg] 145 mm[Hg] [facility] ([facility]) Body weight 186 lb 186 lb [facility] ([facility]) Body height 70 in 70 in [facility] ([facility]) Heart rate 99 /min 99 /min [facility] ([facility]) Respiratory rate 14 /min 14 /min [facility] ( [facility]) Inhaled oxygen concentration 98 % 98 % [facility] ([facility]) Body mass index (BMI) [Ratio] 26.7 kg/m2 26.7 k g/m2 [facility] ([facility]) Diastolic blood pressure 72 mm[Hg] 72 mm[Hg] [facility] ([facility]) Systolic blood pressure 122 mm[Hg] 122 mm[Hg] [facility] ([facility]) Body weight 186 lb 186 lb [facility] ([facility]) Body height 70 in 70 in [facility] ([facility]) Heart rate 60 /min 60 /min [facility] ([facility]) Respiratory rate 15 /min 15 /min [facility] ( [facility]) Inhaled oxygen concentration 99 % 99 % [facility] ([facility]) Body mass index (BMI) [Ratio] 27 kg/m2 27 kg/ m2 [facility] ([facility]) Diastolic blood pressure 76 mm[Hg] 76 mm[Hg] [facility] ([facility]) Systolic blood pressure 120 mm[Hg] 120 mm[Hg] [facility] ([facility]) Body weight 188 lb 188 lb [facility] ([facility]) Body height 70 in 70 in [facility] ([facility]) Heart rate 60 /min 60 /min [facility] ([facility]) Respiratory rate 15 /min 15 /min [facility] ( [facility]) Inhaled oxygen concentration 99 % 99 % [facility] ([facility]) Body mass index (BMI) [Ratio] 27.7 kg/m2 27.7 k g/m2 [facility] ([facility]) Diastolic blood pressure 81 mm[Hg] 81 mm[Hg] [facility] ([facility]) Systolic blood pressure 140 mm[Hg] 140 mm[Hg] [facility] ([facility]) Body weight 193 lb 193 lb [facility] ([facility]) Body height 70 in 70 in [facility] ([facility])
[2019-12-17 10:04] VITALS: BMI 26.5
--- OUTSIDE RECORDS SUMMARY | 2019-12-22 10:11 | XMS ---
:1945 Author Organization [facility] Care Team Providers Name Role Phone Nowakiwskyj, Mira Unavailable Unavailable Nowakiwskyj, Mira Unavailable Unavailable Nowakiwskyj, Mira Unavailable Unavailable Nowakiwskyj, Mira Unavailable Unavailable Nowakiwskyj, Mira Unavailable Unavailable Nowakiwskyj, Mira Unavailable Unavailable Nowakiwskyj, Mira Unavailable Unavailable Nowakiwskyj, Mira Unavailable Unavailable Nowakiwskyj, Mira Unavailable Unavailable Nowakiwskyj, Mira Unavailable Unavailable Emanuel Mason MD Unavailable Unavailable Lufrano, Paula Unavailable Unavailable Lufrano, Paula Unavailable Unavailable Lufrano, Paula Unavailable Unavailable Lufrano, Paula Unavailable Unavailable Lufrano, Paula Unavailable Unavailable Lufrano, Paula Unavailable Unavailable Lufrano, Paula Unavailable Unavailable Lashell Carmona MD Unavailable Unavailable Noyer, Max Unavailable Unavailable Noyer, Max Unavailable Unavailable Noyer, Max Unavailable Unavailable Noyer, Max Unavailable Unavailable Noyer, Max Unavailable Unavailable Noyer, Max Unavailable Unavailable Re-disclosure Warning The records that [...] is protected by Article 27-F of the [facility] Public Health law. If you continue you may haveaccess to information: Regarding HIV / AIDS; Provided by facilities licensed or operated by the [facility] Office of Mental Health; or Provided by the [facility] Office for People With Developmental Disabilities. If such information is present, then the following [facility] mandated warning applies: This information has [...] law may result in a fine or custodial sentence or both. A general authorization for the release of medical or other information is NOT sufficient authorization for further disclosure. Allergies and Adverse Reactions Type Description Substance Reaction Status Data Source(s ) Drug allergy penicillin G penicillin G RASH MO [facility] Encounters Encounter Providers Location Date Indications Data Source(s ) Attender: Mira 12/14/2019 [facility] ([facility] EDT Office Attender: Mira 12/14/2019 12:00:00 AM EDT [facility] ([facility] Office Attender: Mira 12/14/2019 12:00:00 AM EDT [facility] ([facility] Office Attender: Mira 12/14/2019 12:00:00 AM EDT [facility] ([facility] Office Attender: Mira 12/14/2019 12:00:00 AM EDT [facility] Attender: Paula Lowery 11/29/2019 12:00:00 AM EDT [facility] [place] Outpatient Attender: Emanuel 11/23/2019 09:43:00 AM [facility] MDReferrer: NEGRO Carmona MD Outpatient Attender: Lashell 08/24/2019 10:00:00 AM RECTA L CA Carla Carmona MD EDT Hospital RECTAL CA Outpatient Attender: Emanuel 06/24/2019 08:47:00 AM [facility] MDReferrer: EDSaira Carmona MD Outpatient Attender: Max 06/01/2019 10:00:00 NEOPLASM UNCERTAIN [facility] AM EDT - 09/28/2019 BEHAVIOR OTHER H ospital 08:14:00 AM EDT DIGESTIVE ORGANS NEOPLASM UNCERTAIN BEHAVIOR OTHER DIGEST SHAHRIAR ORGANS Patient discharged. Outpatient Attender: Lashell 01/19/2019 09:41:00 RECTAL C ANCER Carla Carmona MD AM EST C20 PREV 09/28/18 [facility] RECTAL CANCER C20 PREV 09/28/18 Outpatient Attender: Emanuel 12/24/2018 07:49:00 FOLLOW-UP [facility] MDReferrer: AM NEGRO Carmona MD FOLLOW-UP P Attender: Lashell Carmona 10/26/2018 07:45:00 AM R ECTAL CANCER Presho MDAdmitter: Lashell Carmona [facility] RECTAL CANCER Functional Status Immunizations Vaccine Date Status Description Data Source(s) New in 2011. IIV4 12/14/2019 12:00:00 completed [facility] Medications Medication Brand Start Product Dose Route Administrative Pharmacy at Indications Reaction Description Data Name Date Form Instructions Instructions Source(s) quinapril QUINAP 10/13/ TABLET 180 complet QUINAP RIL MED[facility] (St 20 MG Oral RIL:31 2019 ed [facility] Tablet 2749 12:00: Medical, QUINAPRIL:3 00 AM ) 74669 EDT Amlodipine AMLODI 10/13/ TABLET 90 complet AMLOD IPINE [facility] (St 5 MG Oral PINE:1 2019 ed [facility] Tablet 11837 12:00: Medical, AMLODIPINE: 00 AM PC) [id number] EDT atorvastati ATORVA 12/13/ TABLET 90 complet ATOR VASTATIN [facility] (St n 40 MG STATIN 2019 ed [facility] Oral Tablet :18681 12:00: Medi alan, ATORVASTATI 1 00 AM PC) N:[id number] EDT SUPREP 11/28/ LIQUID 1 complet SUPREP SLAVA L [facility] (St BOWEL PREP 2019 ed PREP KIT [facility] KIT:[id number] 12:00: Medica l, 00 AM PC) EDT SUPREP 11/28/ LIQUID 1 complet SUPREP SLAVA L [facility] (St BOWEL PREP 2020 ed PREP KIT [facility] KIT:[id number] 12:00: Medica l, 00 AM PC) EDT SUPREP 03/01/ LIQUID 1 complet SUPREP SLAVA L MED[facility] (St BOWEL PREP 2019 ed PREP KIT Niki s KIT:[id number] 12:00: Medica l, 00 AM PC) EST SUPREP 03/01/ LIQUID 1 complet SUPREP SLAVA L MED[facility] (St BOWEL PREP 2019 ed PREP KIT Niki gipson KIT:[id number] 12:00: Medica l, 00 AM PC) EST quinapril QUINAP 12/03/ TABLET 180 complet QUINAP RIL [facility] (St 20 MG Oral RIL:2018 ed [facility] Tablet 2749 12:00: Medical, QUINAPRIL:3 00 AM PC) [id number] EDT atorvastati ATORVA 12/03/ TABLET 90 complet ATOR VASTATIN MED[facility] (St n 40 MG STATIN 2018 ed [facility] Oral Tablet :87551 12:00: Medi alan, ATORVASTATI 1 00 AM PC) N:[id number] EDT Insurance Providers Payer name Policy type Policy ID Covered Covered republican's Policy P kael / Coverage republican ID relationship to Agu[employer] Inf ormation type aguero BC PPO [id number] SP [id number] MEDICARE [id number] SP [id number] THE E[place]IRE [id number] 1 [id number] [place] [id number] 1 [id number] PART B [facility] [id number] PT [id number] HEALTHCARE PPO MEDICARE PART [id number] PT [id number] ONLY BLUE CROSS [id number] PT [id number] OTHER MEDICARE [id number] PT [id number] BLUE CROSS [id number] PT [id number] OTHER BLUE CROSS [id number] PT [id number] OTHER UNITED [id number] PT [id number] HEATHCARE OTHER BLUE CROSS [id number] PT [id number] OTHER BLUE CROSS PPO [id number] PT [id number] [id number] MEDICARE [id number] PT [id number] BLUE CROSS [id number] PT [id number] OTHER BLUE CROSS IND [id number] PT [id number] [employer] [place] [id number] 1 [id number] [facility] [id number] PT [id number] EMPIRE PLAN [employer] [place] [id number] PT [id number] HEATHCARE OTHER MEDICARE PART [id number] PT [id number] ONLY BLUE CROSS [id number] OTHER Problems, Conditions, and Diagnoses Code Display Name Description Problem Effective Data Type Dates Source(s) Z00.00 Encounter for general ENCOUNTER FOR GENERAL Problem MED[facility] ( adult medical ADULT MEDICAL 12:00:00 [facility] examination without EXAMINATION WITHOUT AM EDT Medical, abnormal findings ABNORMAL FINDINGS PC) [id number] Essential hypertension Essential hypertension Problem 0 03/22/2019 MEDENT (disorder) 12:00:00 (Digestive AM EST Disease & Nutrition [facility] r) [id number] Pure Pure Problem 03/22/2019 MEDENT hypercholesterolemia hypercholesterolemia 12:00 :00 (Digestive (disorder) AM EST Disease & Nutrition [facility]) 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 10:11:00 [facility] Z87.891 Personal history of Z87.891 Diagnosis 09/28/2019 [facility] Z85.048 Personal history of Z85.048 Diagnosis 09/28/2019 [facility] other 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:13:00 [place]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, AM EDT Hospi aubrey rectosigmoid junction, and anus 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.52 Diagnosis 09/28/2019 White use of systemic 08:13:00 [place] steroids AM EDT Hospital G70.00 Myasthenia gravis G70.00 Diagnosis 09/28/2019 [facility] without (acute) 08:13:00 [place] exacerbation AM EDT Hospital E78.5 Hyperlipidemia, E78.5 Diagnosis 09/28/2019 [facility] unspecified 08:13:00 [place] AM EDT Hospital K76.89 Other specified K76.89 Diagnosis 09/28/2019 White diseases of liver 08:13:00 [place] AM EDT Hospital K80.20 Calculus of K80.20 Diagnosis 09/28/2019 [facility] gallbladder without 08:13:00 [place] cholecystitis without AM EDT Hos pital obstruction K86.2 Cyst of pancreas K86.2 Diagnosis 09/28/2019 White 08:13:00 [place] AM EDT Hospital Z92.21 Personal history of Z92.21 Diagnosis 08/24/2019 [facility] antineoplastic 08:42:00 [place] chemotherapy EDT Hospital Z08 Encounter for Z08 Diagnosis 08/24/2019 White follow-up examination 08:42:00 Cole[facility] ins after completed AM EDT Hospital treatment for malignant neoplasm Surgeries/Procedures Procedure Description Date Indications Data Source(s) Annual wellness visit, 12/14/2019 MEDGE N ([facility] includes a personalized 12:00:00 AM EDT Alphonso luciano, MOE) prevention plan of service (pps), subsequent visit Administration of 12/14/2019 [facility] ([facility] influenza virus vaccine 12:00:00 AM EDT Alphonso luciano, MOE) PNEUMOCOCCAL POLYSAC 12/14/2019 [facility] ([facility] VACCINE 23-V 2 />YR 12:00:00 AM EDT Ramin ms, PC) SUBQ/IM FLU QUAD 36 MOS & ABOVE 12/14/2019 MEDG EN ([facility] 12:00:00 AM EDT Syeda, PC) COLLECTION VENOUS BLOOD 12/14/2019 MEDG EN ([facility] VENIPUNCTURE 12:00:00 AM [facility] Syeda, PC) Documentation of current 11/29/2019 MED GEN ([facility] medications (procedure) 12:00:00 AM EDT M edical, PC) Documentation of current 11/29/2019 MED GEN ([facility] medications (procedure) 12:00:00 AM EDT Alphonso luciano PC) Documentation of current 11/29/2019 MED GEN ([facility] medications (procedure) 12:00:00 AM EDT Alphonso luciano PC) Documentation of current 11/29/2019 MED GEN ([facility] medications (procedure) 12:00:00 AM EDT Alphonso luciano, PC) Documentation of current 11/29/2019 MED GEN ([facility] medications (procedure) 12:00:00 AM EDT Al[facility] luciano, PC) OFFICE OUTPATIENT VISIT 25 11/29/2019 Alphonso BENAVIDEZ ([facility] MINUTES 12:00:00 AM EDT Medical, PC) Documentation of current 11/29/2019 MED GEN ([facility] medications (procedure) 12:00:00 AM EDT Alphonso luciano PC) OFFICE OUTPATIENT VISIT 25 11/29/2019 Alphonso BENAVIDEZ ([facility] MINUTES 12:00:00 AM ED Medical, PC) UPPER GI NDSC W/NDSC 09/28/2019 MEDENT (Digestive ULTRASOUND EXAM 12:00:00 AM [facility] Disease & Nutrition Center [facility]) Documentation of current 04/26/2019 MED GEN ([facility] medications (procedure) 12:00:00 AM EST Alphonso luciano PC) Documentation of current 04/26/2019 MED GEN ([facility] medications (procedure) 12:00:00 AM EST Alphonso luciano PC) OFFICE OUTPATIENT VISIT 15 04/26/2019 Alphonso BENAVIDEZ ([facility] MINUTES 12:00:00 AM EST Medical, PC) Documentation of current 04/26/2019 MED GEN ([facility] medications (procedure) 12:00:00 AM EST Alphonso luciano, PC) Documentation of current 04/26/2019 [facility] ([facility] medications (procedure) 12:00:00 AM EST Alphonso luciano, PC) OFFICE OUTPATIENT VISIT 15 04/26/2019 Alphonso BENAVIDEZ ([facility] MINUTES 12:00:00 AM EST Medical, PC) Documentation of current 03/01/2019 MED GEN ([facility] medications (procedure) 12:00:00 AM EST Alphonso luciano, PC) Documentation of current 03/01/2019 MED GEN ([facility] medications (procedure) 12:00:00 AM EST Alphonso luciano, ) Documentation of current 03/01/2019 MED GEN ([facility] medications (procedure) 12:00:00 AM EST edical, ) Documentation of current 03/01/2019 MED GEN ([facility] medications (procedure) 12:00:00 AM EST edical, ) OFFICE OUTPATIENT VISIT 15 11/24/2018 Alphonso REEMA ([facility] MINUTES 12:00:00 AM EDT Medical, ) OFFICE OUTPATIENT VISIT 15 11/24/2018 Alphonso REEMA ([facility] MINUTES 12:00:00 AM EDT Medical, ) Documentation of current 11/16/2018 MED GEN ([facility] medications (procedure) 12:00:00 AM EDT edical, PC) Documentation of current 11/16/2018 MED GEN ([facility] medications (procedure) 12:00:00 AM EDT edical, ) Documentation of current 11/16/2018 MED GEN ([facility] medications (procedure) 12:00:00 AM EDT edical, ) Documentation of current 11/16/2018 MED GEN ([facility] medications (procedure) 12:00:00 AM EDT edical, ) OFFICE OUTPATIENT VISIT 15 11/16/2018 Alphonso REEMA ([facility] MINUTES 12:00:00 AM EDT Medical, ) Documentation of current 11/16/2018 MED GEN ([facility] medications (procedure) 12:00:00 AM EDT edical, ) Documentation of current 11/16/2018 MED GEN ([facility] medications (procedure) 12:00:00 AM EDT edical, PC) Documentation of current 11/16/2018 MED GEN ([facility] medications (procedure) 12:00:00 AM EDT edical, ) Documentation of current 11/16/2018 MED GEN ([facility] medications (procedure) 12:00:00 AM EDT edical, PC) OFFICE OUTPATIENT VISIT 15 11/16/2018 Alphonso DARRENN ([facility] MINUTES 12:00:00 AM EDT Medical, ) Results ID Date Data Source [id number] 12/18/2019 12:11:00 PM EDT [facility] Name Value Range Interpretation Description Data Sup porting Code Source(s) Document(s ) SARS [facility] coronavirus 2 RNA This lab was ordered by RACHELLE garcia [facility] and reported by [facility]. ID Date Data Source [id number] 10/23/2019 08:10:00 AM EDT [facility] Name Value Range Interpretation Description Data Sup porting Code Source(s) Document(s ) SARS [facility] coronavirus 2 RNA This lab was ordered by [facility] JIMMIE garcia [facility] and reported by [facility]. ID Date Data Source [id number] 10/06/2019 09:11:00 AM EDT [facility] Name Value Range Interpretation Description Data Sup porting Code Source(s) Document(s ) SARS [facility] coronavirus 2 RNA This lab was ordered by [facility] JIMMIE garcia [facility] and reported by [facility]. ID Date Data Source [id number] 10/02/2019 12:51:00 PM EDT [facility] Name Value Range Interpretation Description Data Sup porting Code Source(s) Document(s ) SARS [facility] coronavirus 2 RNA This lab was ordered by [facility] JIMMIE garcia [facility] and reported by [facility]. 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 Smoking 11/29/2019 Former smoker completed Former smoker [facility] ( St 12:00:00 AM EDT [facility] La maryjaneal, PC) Smoking 03/22/2019 Patient is a completed Patient is a MEDENT 12:00:00 AM EST former smoker former smoker (Di gestive Disease & Nutrition [facility] ) Vital Signs ID Date Data Source UNK Name Value Range Interpretation Code Description Data Source(s) Heart rate 84 /min 84 /min [facility] ([facility]) Respiratory rate 14 /min 14 /min [facility] [place] [facility] Body temperature 98.1 F 98.1 F [facility] ( [facility] Inhaled oxygen 97 % 97 % [facility] ([facility]) Body mass index 29.2 kg/m2 29.2 kg/m2 MEDGEN (S t (BMI) [Ratio] [facility]) Diastolic blood 90 mm[Hg] 90 mm[Hg] [facility] ([facility] Systolic blood 151 mm[Hg] 151 mm[Hg] MED[facility] ([facility]) Body weight 192 lb 192 lb [facility] Body height 68 in 68 in [facility] Heart rate 82 /min 82 /min [facility] Inhaled oxygen 99 % 99 % [facility] ([facility]) Body mass index 29.8 kg/m2 29.8 kg/m2 MEDGEN (S t (BMI) [Ratio] [facility]) Diastolic blood 84 mm[Hg] 84 mm[Hg] [facility] ([facility] Systolic blood 142 mm[Hg] 142 mm[Hg] MEDGEN ([facility]) Body weight 196 lb 196 lb [facility] Body height 68 in 68 in [facility] Inhaled oxygen 99 % 99 % [facility] ([facility]) Body mass index 29.8 kg/m2 29.8 kg/m2 MED[facility] (S t (BMI) [Ratio] [facility]) Diastolic blood 84 mm[Hg] 84 mm[Hg] [facility] (S t [facility]) Systolic blood 142 mm[Hg] 142 mm[Hg] [facility] ([facility]) Body weight 196 lb 196 lb [facility] Body height 68 in 68 in [facility] Heart rate 82 /min 82 /min [facility] ([facility] Diastolic blood 70 mm[Hg] 70 mm[Hg] [facility] Systolic blood 128 mm[Hg] 128 mm[Hg[facility] Respiratory rate 20 /min 20 /min [facility] Heart rate 79 /min 79 /min [facility] Body temperature 36.15632 36.15259 [facility] Body temperature 98.0 [degF] 98.0 [degF] [facility] Body mass index 27.1 kg/m2 27.1 kg/m2 [facility] (BMI) [Ratio] Hospital Body weight 194 [lb_av] 194 [lb_av] [facility] Heart rate 86 /min 86 /min [facility] Inhaled oxygen 97 % 97 % [facility] ([facility]) Body mass index 29.5 kg/m2 29.5 kg/m2 MEDGEN (S t (BMI) [Ratio] [facility]) Diastolic blood 90 mm[Hg] 90 mm[Hg] MEDGEN (S t pressure [facility]) Systolic blood 160 mm[Hg] 160 mm[Hg] MEDGEN ([facility]) Body weight 194 lb 194 lb [facility] Body height 68 in 68 in [facility] Heart rate 86 /min 86 /min [facility] Inhaled oxygen 97 % 97 % [facility] ([facility]) Body mass index 29.5 kg/m2 29.5 kg/m2 MEDGEN (S t (BMI) [Ratio] [facility]) Diastolic blood 90 mm[Hg] 90 mm[Hg] MED[facility] (S t [facility]) Systolic blood 160 mm[Hg] 160 mm[Hg] [facility] ([facility]) Body weight 194 lb 194 lb [facility] Body height 68 in 68 in [facility] Body mass index 27.1 kg/m2 27.1 kg/m2 [facility] (BMI) [Ratio] ([facility]) Body weight 194.00 194.00 [lb_av] MEDENT [lb_av] ([facility]) Body height 71 [in_i] 71 [in_i] [facility] ([facility]) 5'11" Respiratory rate 13 /min 13 /min MED[facility] ( [facility]) Heart rate 88 /min 88 /min MEDENT (Digest shahri[facility]) Diastolic blood pressure 68 mm[Hg] 68 mm[Hg] MEDENT ([facility]) Systolic blood pressure 118 mm[Hg] 118 mm[Hg] M EDENT ([facility]) Heart rate 80 /min 80 /min [facility] ([facility], ) Respiratory rate 14 /min 14 /min [facility] ( [facility] Inhaled oxygen concentration 98 % 98 % [facility] Body mass index (BMI) [Ratio] 29.8 kg/m2 29.8 k g/m2 [facility] ([facility], ) Diastolic blood pressure 86 mm[Hg] 86 mm[Hg] [facility] Systolic blood pressure 132 mm[Hg] 132 mm[Hg] Alphonso REEMA ([facility] Body weight 196 lb 196 lb MEDGEN ([facility], ) Body height 68 in 68 in MEDGEN ([facility], ) Respiratory rate 14 /min 14 /min MED[facility] ( [facility], ) Inhaled oxygen concentration 98 % 98 % [facility] ([facility], ) Body mass index (BMI) [Ratio] 29.8 kg/m2 29.8 k g/m2 [facility] ([facility] Diastolic blood pressure 86 mm[Hg] 86 mm[Hg] [facility] Systolic blood pressure 132 mm[Hg] 132 mm[Hg] Alphonso DARRENN ([facility] Body weight 196 lb 196 lb MEDGEN ([facility], ) Body height 68 in 68 in MEDGEN ([facility], ) Heart rate 80 /min 80 /min MEDGEN ([facility], ) Heart rate 84 /min 84 /min MEDGEN ([facility]) Inhaled oxygen concentration 98 % 98 % [facility] Body mass index (BMI) [Ratio] 29.3 kg/m2 29.3 k g/m2 [facility] Diastolic blood pressure 72 mm[Hg] 72 mm[Hg] [facility] Systolic blood pressure 138 mm[Hg] 138 mm[Hg] [facility] Body weight 193 lb 193 lb MEDGEN ([facility]) Body height 68 in 68 in MEDGEN ([facility]) Heart rate 84 /min 84 /min MED[facility] ([facility]) Inhaled oxygen concentration 98 % 98 % [facility] Body mass index (BMI) [Ratio] 29.3 kg/m2 29.3 k g/m2 [facility] Diastolic blood pressure 72 mm[Hg] 72 mm[Hg] [facility] Systolic blood pressure 138 mm[Hg] 138 mm[Hg] [facility] Body weight 193 lb 193 lb MEDGEN ([facility]) Body height 68 in 68 in MEDGEN ([facility]) Heart rate 76 /min 76 /min MED[facility] ([facility]) Respiratory rate 15 /min 15 /min [facility] ( [facility] Inhaled oxygen concentration 95 % 95 % [facility] Diastolic blood pressure 76 mm[Hg] 76 mm[Hg] [facility] Systolic blood pressure 120 mm[Hg] 120 mm[Hg] [facility] Body height 68 in 68 in MEDGEN ([facility]) Heart rate 76 /min 76 /min MED[facility] ([facility]) Respiratory rate 15 /min 15 /min [facility] ( [facility] Inhaled oxygen concentration 95 % 95 % [facility] Diastolic blood pressure 76 mm[Hg] 76 mm[Hg] [facility] Systolic blood pressure 120 mm[Hg] 120 mm[Hg] Alphonso BENAVIDEZ ([facility]) Body height 68 in 68 in [facility] ([facility], )
[2019-12-22] MEDS ORDERED: PROPOFOL 20 ML ONE ×5 (11:10)
[2019-12-22 11:41] VITALS: TEMP 97.8
[2019-12-22 12:08] VITALS: BP 135/67; PULSE 86
--- NOTE | 2019-12-24 12:24 | PATH ---
Surgical Pathology Report Patient Name: JAY JAY MODI [facility]. Rec. #: [id number] /Age/Gender: 1945 (Age: 74) / M Account: [id number] Location: [facility] Taken: 12/22/2019 Received: 12/22/2019 Reported: 12/24/2019 Physicians: Paula Lowery M.D. Specimen(s) Received A: POLYP DESCENDING COLON B: POLYP SIGMOID COLON AT 20 CM C: RECTUM RANDOM Clinical History History of colon cancer Final Diagnosis A. DESCENDING COLON POLYP, POLYPECTOMY: HYPERPLASTIC POLYP. B. SIGMOID COLON AT 20 CM POLYP, POLYPECTOMY: HYPERPLASTIC POLYP. C. RANDOM RECTAL BIOPSY: COLONIC MUCOSA WITH FOCAL HEMORRHAGE AND STROMAL FIBROSIS IN THE LAMINA PROPRIA. NO EVIDENCE OF ACTIVE COLITIS. Electronically Signed Shawn Ríos M.D. Gross Description A. Received in formalin, labeled "biopsy polyp descending colon" is a gregorio, irregular portion of soft tissue measuring 0.2 cm. in greatest dimension. The specimen is submitted in toto in one cassette. B. Received in formalin, labeled "biopsy polyp sigmoid colon at 20 cm" is a gregorio, irregular portion of soft tissue measuring 0.3 cm. in greatest dimension. The specimen is submitted in toto in one cassette. C. Received in formalin, labeled "biopsy random rectum" are 6 gregorio, irregular portions of soft tissue ranging from 0.1-0.3 cm. in greatest dimension. The specimens are submitted in toto in one cassette. 12/23/2019 saudi12/23/2019
== END 2019-12-22 12:15 | disposition home or self-care (01) ==
LOC: FASU-ENDO 10:06
PROVIDERS: ATTEND Internal Medicine Gastroenterology
PROC: 0DBP8ZX Excision of Rectum, Via Natural or Artificial Opening Endoscopic, Diagnostic (ICD-10-PCS; 2019-12-22)
PROC: 0DBM8ZX Excision of Descending Colon, Via Natural or Artificial Opening Endoscopic, Diagnostic (ICD-10-PCS; principal; 2019-12-22 11:11)
DX: Z08 Encounter for follow-up examination after completed treatment for malignant neoplasm (principal); Z85.038 Personal history of other malignant neoplasm of large intestine; K57.30 Diverticulosis of large intestine without perforation or abscess without bleeding; D12.4 Benign neoplasm of descending colon; D12.5 Benign neoplasm of sigmoid colon; K62.89 Other specified diseases of anus and rectum
CPT/HCPCS: 88305-TC

== ENCOUNTER 2020-10-11 10:26 | Day surgery (SDC) | payer OTHER, BC ==
[2020-10-04 16:26] VITALS: BMI 26.5
[2020-10-11 10:40] VITALS: TEMP 97.8
[2020-10-11 12:17] VITALS: BP 120/76; PULSE 70
== END 2020-10-11 12:17 | disposition home or self-care (01) ==
LOC: FASU-ENDO 10:26
PROVIDERS: ATTEND Internal Medicine Gastroenterology
PROC: 0DBN8ZX Excision of Sigmoid Colon, Via Natural or Artificial Opening Endoscopic, Diagnostic (ICD-10-PCS; 2020-10-11)
PROC: 0DBP8ZX Excision of Rectum, Via Natural or Artificial Opening Endoscopic, Diagnostic (ICD-10-PCS; principal; 2020-10-11 11:13)
DX: Z85.048 Personal history of other malignant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, rectosigmoid junction, and anus (principal); K64.8 Other hemorrhoids; K57.30 Diverticulosis of large intestine without perforation or abscess without bleeding; D12.5 Benign neoplasm of sigmoid colon

== ENCOUNTER 2020-11-27 12:04 | Emergency (ER) | payer OTHER, BC ==
[2020-11-27 12:38] VITALS: BP 163/78; PULSE 103; TEMP 97.5; BMI 26.5
== END 2020-11-27 14:06 | disposition home or self-care (01) ==
LOC: FER 12:04
DX: R07.81 Pleurodynia (principal)
CPT/HCPCS: 71101-TC-RT-FY; 99283-25

== ENCOUNTER 2021-02-21 10:07 | Emergency (ER) | payer OTHER, BC ==
[2021-02-21 10:56] VITALS: BP 126/73; PULSE 88; TEMP 97.7; BMI 26.5
[2021-02-21] MEDS ORDERED: KETOROLAC TROMETHAMINE 30 MG/1 ML VIAL IM ONE (10:56)
[2021-02-21] MEDS ORDERED: LIDOCAINE 5% TOPICAL PATCH TP ONE (10:56)
[2021-02-21] MEDS ORDERED: LIDOCAINE 5% TOPICAL PATCH ONE (11:02)
[2021-02-21] MEDS ORDERED: KETOROLAC TROMETHAMINE 30 MG/1 ML VIAL ONE (11:02)
[2021-02-21] MEDS ORDERED: oxyCODONE HCL 5 MG TABLET PO ONE (11:30)
[2021-02-21] MEDS ORDERED: oxyCODONE HCL 5 MG TABLET ONE (12:00)
== END 2021-02-21 12:52 | disposition home or self-care (01) ==
LOC: FER 10:07
PROC: 3E0233Z Introduction of Anti-inflammatory into Muscle, Percutaneous Approach (ICD-10-PCS; principal; 2021-02-21)
DX: S33.5XXA Sprain of ligaments of lumbar spine, initial encounter (principal); S22.089A Unspecified fracture of T11-T12 vertebra, initial encounter for closed fracture; S42.202A Unspecified fracture of upper end of left humerus, initial encounter for closed fracture; W00.0XXA Fall on same level due to ice and snow, initial encounter; Y93.01 Activity, walking, marching and hiking
CPT/HCPCS: 71046-TC-FY; 72070-TC-FY; 72100-TC-FY; 73030-TC-LT-FY; 73060-TC-LT-FY; 99285-25

== ENCOUNTER 2021-11-07 11:36 | Day surgery (SDC) | payer OTHER, BC ==
[2021-11-02 14:23] VITALS: BMI 26.5
[2021-11-07 12:06] VITALS: RESP 18
[2021-11-07 14:16] VITALS: TEMP 98
[2021-11-07 14:17] VITALS: BP 124/82; PULSE 77
== END 2021-11-07 14:22 | disposition home or self-care (01) ==
LOC: FASU-ENDO 11:36
PROVIDERS: ATTEND Internal Medicine Gastroenterology
PROC: 0DBL8ZX Excision of Transverse Colon, Via Natural or Artificial Opening Endoscopic, Diagnostic (ICD-10-PCS; 2021-11-07)
PROC: 0DBP8ZX Excision of Rectum, Via Natural or Artificial Opening Endoscopic, Diagnostic (ICD-10-PCS; 2021-11-07)
PROC: 0DBH8ZX Excision of Cecum, Via Natural or Artificial Opening Endoscopic, Diagnostic (ICD-10-PCS; principal; 2021-11-07 13:16)
DX: Z12.11 Encounter for screening for malignant neoplasm of colon (principal); Z85.038 Personal history of other malignant neoplasm of large intestine; D12.3 Benign neoplasm of transverse colon; K62.1 Rectal polyp; K63.89 Other specified diseases of intestine; K64.1 Second degree hemorrhoids; K57.30 Diverticulosis of large intestine without perforation or abscess without bleeding; K63.5 Polyp of colon
CPT/HCPCS: 88305-TC

== ENCOUNTER 2023-01-22 09:46 | Day surgery (SDC) | payer OTHER, BC ==
[2023-01-17 12:24] VITALS: BMI 27.9
[2023-01-22] MEDS ORDERED: PROPOFOL 160 ML ONE (11:25)
[2023-01-22] MEDS ORDERED: PHENYLEPHRINE HCL 10 MG/1 ML SINGLE DOSE VIAL ONE (12:16)
[2023-01-22 12:54] VITALS: TEMP 98
[2023-01-22 12:56] VITALS: BP 102/58; PULSE 83; RESP 19
== END 2023-01-22 13:00 | disposition home or self-care (01) ==
LOC: FASU-ENDO 09:46
PROVIDERS: ATTEND Internal Medicine Gastroenterology
PROC: 0DBP8ZX Excision of Rectum, Via Natural or Artificial Opening Endoscopic, Diagnostic (ICD-10-PCS; principal; 2023-01-22 12:12)
DX: Z12.11 Encounter for screening for malignant neoplasm of colon (principal); K64.8 Other hemorrhoids; K57.30 Diverticulosis of large intestine without perforation or abscess without bleeding; K63.89 Other specified diseases of intestine; Z85.048 Personal history of other malignant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, rectosigmoid junction, and anus
CPT/HCPCS: 88305-TC

== ENCOUNTER 2023-07-16 08:03 | Emergency (ER) | payer OTHER, BC ==
[2023-07-16 08:11] VITALS: BP 130/70; PULSE 94; RESP 16; TEMP 97.6; BMI 28.7
[2023-07-16] MEDS ORDERED: KETOROLAC TROMETHAMINE 30 MG/1 ML VIAL ONE (08:28)
[2023-07-16] MEDS: KETOROLAC TROMETHAMINE 30 MG/1 ML VIAL IM ONE (08:34)
== END 2023-07-16 09:54 | disposition home or self-care (01) ==
LOC: FER 08:03
PROC: 3E0233Z Introduction of Anti-inflammatory into Muscle, Percutaneous Approach (ICD-10-PCS; principal; 2023-07-16)
DX: M25.531 Pain in right wrist (principal); M79.641 Pain in right hand
CPT/HCPCS: 73110-TC-RT-FY; 73130-TC-RT-FY; 99284-25